=== PATIENT | male | born 1965 | race Caucasian/White ===

== ENCOUNTER 2017-02-21 18:16 | Inpatient (IN) | payer MEDICAID ==
[~2017-02-21] VITALS: Ht 172.7 cm; Wt 101.0 kg
[~2017-02-21 18:16] MED LIST: NO MEDS
[2017-02-21] MEDS ORDERED: morphine 4 MG/ML VIAL IV STA (19:17)
[2017-02-21] MEDS ORDERED: ONDANSETRON 4 MG INJ IV STA (19:17)
--- NOTE | 2017-02-21 19:26 | ERD ---
ER Documentation Chief Complaint Date/Time DATE: 02/21/17 TIME: 19:23 Chief Complaint Mid Ap x5 days (WILMER MICHAEL) HPI This is a 51-year-old male presents to the ER with abdominal pain for the last 4 days. Patient states that abdominal pain is located in the middle of his abdomen and he describes it as a" scratching sensation.' Patient has not tried anything for the pain. Pain does not radiate anywhere patient denies any nausea vomiting or diarrhea. He denies any fevers or chills. Patient denies any urinary frequency or dysuria. Patient denies any chest pain or shortness of breath. (WILMER MICHAEL) ROS All systems reviewed and are negative except as per history of present illness. (WILMER MICHAEL) Medications Home Meds Reported Medications [No Meds] No Conflict Check 01/17/13 Allergies Allergies: Coded Allergies: No Known Drug Allergy (Verified Allergy, Unknown, 01/17/13) PMhx/Soc History of Surgery: Yes (REMOVED R. KIDNEY) Anesthesia Reaction: No Hx Neurological Disorder: No Hx Respiratory Disorders: No Hx Cardiac Disorders: No Hx Psychiatric Problems: No Hx Miscellaneous Medical Probl: No Hx Alcohol Use: No Hx Substance Use: No Hx Tobacco Use: No Smoking Status: Never smoker (WILMER MICHAEL) Physical Exam Vitals Vital Signs Date Time Temp Pulse Resp B/P Pulse Ox O2 Delivery O2 Flow Rate FiO2 02/21/17 18:47 97.5 72 20 123/77 98 (EKMEKJIANXAVIER MD) Physical Exam GENERAL: The patient is well developed and appropriate for usual state of health , in no apparent distress. CHEST: Clear to auscultation bilaterally. There are no rales, wheezes or rhonchi. HEART: Regular rate and rhythm. No murmurs, clicks, rubs or gallops. ABDOMEN: Soft, nontender and nondistended. Good bowel sounds. No rebound or guarding. No gross peritonitis. No gross organomegaly or masses. No Alcala sign or McBurney point tenderness. No pulsatile abdominal mass. BACK: No midline or flank tenderness. . NEURO: Alert and oriented. SKIN: The skin is warm and dry. (WILMER MICHAEL) Result Diagram: 02/21/17194702/21/171947 Results 24 hrs Laboratory Tests Test 02/21/17 19:26 02/21/17 19:48 02/21/17 20:55 Urine Color LT. YELLOW Urine Clarity CLEAR Urine pH 6.0 Urine Specific [place] 1.025 Urine Ketones TRACE Urine Nitrite NEGATIVE Urine Bilirubin NEGATIVE Urine Urobilinogen 1.0 E.U./dL Urine Leukocyte Esterase NEGATIVE Urine Microscopic RBC 5-10/HPF Urine Microscopic WBC 0-2/HPF Urine Squamous Epithelial Cells RARE Urine Bacteria RARE Urine Hemoglobin 1+ Urine Glucose NEGATIVE% Urine Total Protein NEGATIVE White Blood Count 8.810^3/ul Red Blood Count 5.0710^6/ul Hemoglobin 15.6g/dl Hematocrit 44.9% Mean Corpuscular Volume 88.6fl Mean Corpuscular Hemoglobin 30.8pg Mean Corpuscular Hemoglobin Concent 34.7g/dl Red Cell Distribution Width 13.4% Platelet Count 88507^3/UL Mean Platelet Volume 12.6fl Neutrophils % 61.7% Lymphocytes % 25.8% Monocytes % 8.8% Eosinophils % 3.1% Basophils % 0.3% Nucleated Red Blood Cells % 0.0/100WBC Neutrophils # 5.410^3/ul Lymphocytes # 2.310^3/ul Monocytes # 0.810^3/ul Eosinophils # 0.310^3/ul Basophils # 0.010^3/ul Nucleated Red Blood Cells # 0.010^3/ul Sodium Level 144mmol/L Potassium Level 3.9mmol/L Chloride Level 107mmol/L Carbon Dioxide Level 29mmol/L Anion Gap 12 Blood Urea Nitrogen 19mg/dl Creatinine 1.23mg/dl Glucose Level 93mg/dl Calcium Level 8.8mg/dl Total Bilirubin 0.1mg/dl Direct Bilirubin 0.00mg/dl Indirect Bilirubin 0.1mg/dl Aspartate Amino Transf (AST/SGOT) 32IU/L Alanine Aminotransferase (ALT/SGPT) 59IU/L Alkaline Phosphatase 93IU/L Total Protein 7.9g/dl Albumin 4.2g/dl Globulin 3.70g/dl Albumin/Globulin Ratio 1.13 Lipase 72U/L Prothrombin Time 13.7Sec Prothrombin Time Ratio 1.1 INR International Normalized Ratio 1.05 Activated Partial Thromboplast Time 31.5Sec Current Medications Medications (Trade) Dose Ordered Sig/Aidan Route PRN Reason Start Time Stop Time Status Last Admin Dose Admin Morphine Sulfate (morphine) 4 mg ONCE STAT IV 02/21/17 19:17 02/21/17 19:18 DC 02/21/17 19:53 Ondansetron HCl (Zofran Inj) 4 mg ONCE STAT IV 02/21/17 19:17 02/21/17 19:18 DC 02/21/17 19:53 Famotidine 20 mg 20 mg ONCE ONCE IV 02/21/17 19:30 02/21/17 19:31 DC 02/21/17 19:53 Sodium Chloride 1,000 ml @ 1,000 mls/hr Q1H ONCE IV 02/21/17 20:00 02/21/17 20:59 DC 02/21/17 19:54 Piperacillin Sod/ Tazobactam Sod (Zosyn 3.375gm/ 100 ml (Pmx)) 100 ml @ 200 mls/hr ONCE ONCE IVPB 02/21/17 20:00 02/21/17 20:29 DC 02/21/17 20:03 Bupivacaine HCl/ Epinephrine Bitart (Marcaine 0.25%/ Epi (Sdv) 30 ml) 30 ml STK-MED ONCE .ROUTE 02/21/17 20:53 02/21/17 20:54 DC Citric Acid/ Sodium Citrate (Bicitra) 30 ml ONCE PO 02/21/17 22:00 02/21/17 23:00 02/21/17 21:50 Metoclopramide HCl (Reglan) 10 mg STK-MED ONCE .ROUTE 02/21/17 21:37 02/21/17 21:38 DC (XAVIER TRAN MD) Procedures/MDM This is a 51-year-old male presents to the ER with midabdominal pain for the last 4 days. Patient does have acute appendicitis of the transfer to ER 1 for further management and care. (WILMER MICHAEL) Patient is presenting with right lower quadrant pain for 3 days. His vitals are stable and he is afebrile. He has no leukocytosis or signs of peritonitis on exam. His CT abdomen and pelvis is consistent with acute appendicitis without evidence of perforation. Patient was given IV fluids, pain medications , Zosyn IV. I spoke with Dr. Rivera, the surgeon on-call, who will take the patient to the OR tonight. Patient was updated on the plan and he is agreeable. (XAVIER TRAN MD) Departure Diagnosis: Primary Impression: Acute appendicitis Acute appendicitis type: unspecified acute appendicitis type Qualified Code: K35.80 - Acute appendicitis, unspecified acute appendicitis type WILMER MICHAEL Feb 21, 2017 19:26 XAVIER TRAN MD Feb 21, 2017 21:59
[2017-02-21] MEDS ORDERED: FAMOTIDINE 20 MG INJ IV ONE (19:30)
[2017-02-21 19:38] LABS: ADD UMIC YES; URINE BILIRUBIN (Dip) NEGATIVE (NEGATIVE); URINE BLOOD (Dip) 1+ (NEGATIVE); URINE COLOR LT. YELLOW (YELLOW); URINE GLUCOSE (Dip) NEGATIVE (NEGATIVE); URINE KETONES (Dip) TRACE (NEGATIVE); URINE LEUKOCYTE ESTERASE (Dip) NEGATIVE (NEGATIVE); URINE NITRITE (Dip) NEGATIVE (NEGATIVE); URINE TOTAL PROTEIN (Dip) NEGATIVE (NEGATIVE); URINE UROBILINOGEN (Dip) 1.0 E.U./dL (0.1-1.0)
--- NOTE | 2017-02-21 19:49 | RADRPT ---
PROCEDURE: CT abdomen and pelvis without contrast. CLINICAL INDICATION: Abdominal pain TECHNIQUE: CT scan of the abdomen and pelvis without contrast was performed. Sagittal and coronal reformatted images were obtained from the axial source images. CTDI = 19.72 mGy; DLP = 1340.79 mGy- cm COMPARISON: None. FINDINGS: Visualized lower thorax: Abnormal varicose cystic bronchiectasis type changes of the right lower lo be are present. There is no evidence of pulmonary infiltrate or nodule There is no evidence for pleu ral effusion. Liver, gallbladder, pancreas and spleen: Mild hepatomegaly, the maximum dimension 20 cm with diffus e low attenuation of the liver consistent with hepatic steatosis, the liver contour is preserved. T here is no evidence for a liver mass or ductal dilatation. The gallbladder is unremarkable. No com mon bile duct abnormality is demonstrated. The pancreas is unremarkable. The spleen is normal in s ize. Adrenal glands and genitourinary system: The adrenal glands are normal bilaterally. The right kidne y is severely atrophic and barely visible, surgical resection is possible but no clips are seen in t he retroperitoneum. The left kidney shows mild compensatory hypertrophy of the cranial caudal estim ation and slightly over 12 cm. In the interpolar region and there are abutting calculi each measuri ng approximately 2 mm (series 3 image 79) an additional 3 mm calculus in the lower interpolar region (series 3 image 86). There is no evidence of hydronephrosis. The ureters are unremarkable. The ur inary bladder is contracted and difficult to evaluate. The prostate gland is normal in size with in cidental calcifications. The scrotum shows no abnormality. Gastrointestinal system: The stomach is normal in caliber with no abnormality of significance. The small bowel is normal in caliber with no ileus, obstruction or wall thickening. The appendix is abn ormally dilated measuring approximately 16 mm in diameter and with adjacent fat stranding, findings consistent with acute appendicitis (series 3 and is series 108 - 116). There is no extraluminal gas or evidence of abscess. The colon shows no evidence for wall thickening or acute abnormality. The re is no evidence for colitis or diverticulitis. Peritoneum, retroperitoneum, lymph nodes and vessels: The abdominal aorta is normal in caliber. The re is no evidence for atherosclerotic calcification. The inferior vena cava is unremarkable. There is no evidence for adenopathy or mass. There is no ascites. No pneumoperitoneum is present Osseous structures and musculoskeletal findings: There is no fracture, lytic or blastic lesion. No muscular abnormality or soft tissue pathology is present. RPTAT:HJJR IMPRESSION: 1. Acute appendicitis, the appendix posterior location projecting at the level of the iliac crest a nd without evidence of extraluminal gas or abscess. 2. Small nonobstructing left intrarenal calculi with a severely atrophic presumably nonfunctioning right kidney versus prior nephrectomy but no postoperative clips are visible. 3. Mild hepatomegaly and hepatic steatosis. 4. Cystic bronchiectasis of the right lung base. 5. Results are telephoned to the patient's emergency room Health Care provider, Echo Haque, at 1 9:48 Physician Santos Date Time Electronically viewed and signed by Physician Santos on 02/21/2017 19:49 JR/
[2017-02-21 19:53] LABS: BACTERIA,URINE RARE; SQUAMOUS EPITHELIAL CELL,UR RARE
[2017-02-21] MEDS ORDERED: SOD CHLORIDE 0.9% 1,000 ML IV ONE (20:00)
[2017-02-21] MEDS ORDERED: PIPER-TAZO 3.375 GM IV (PMX) 100 ML IVPB ONE (20:00)
[2017-02-21 20:02] LABS: ADD SCAN DIFF NO
[2017-02-21 20:03] LABS: BASOPHILS % 0.3 % (0.0-2.0); EOSINOPHILS # 0.3 10^3/ul (0.0-0.5); EOSINOPHILS % 3.1 % (0.0-7.0); HEMATOCRIT 44.9 % (42.0-52.0); HEMOGLOBIN 15.6 g/dl (14.0-18.0); LYMPHOCYTES # 2.3 10^3/ul (0.8-2.9); LYMPHOCYTES % 25.8 % (15.0-51.0); MEAN CORPUSCULAR HEMOGLOBIN 30.8 pg (29.0-33.0); MEAN CORPUSCULAR HGB CONC 34.7 g/dl (32.0-37.0); MEAN CORPUSCULAR VOLUME 88.6 fl (82.0-101.0); MEAN PLATELET VOLUME 12.6 fl (7.4-10.4); MONOCYTE # 0.8 10^3/ul (0.3-0.9); MONOCYTES % 8.8 % (0.0-11.0); NEUTROPHIL # 5.4 10^3/ul (1.6-7.5); NEUTROPHILS % 61.7 % (39.0-77.0); PLATELET COUNT 177 10^3/UL (140-415); RED BLOOD COUNT 5.07 10^6/ul (4.70-6.10); RED CELL DISTRIBUTION WIDTH 13.4 % (11.5-14.5); WHITE BLOOD COUNT 8.8 10^3/ul (4.8-10.8)
--- NOTE | 2017-02-21 20:10 | RADRPT ---
PROCEDURE: Chest x-ray CLINICAL INDICATION: Abdominal pain TECHNIQUE: Chest single view COMPARISON: None FINDINGS: The heart is normal in size. The pulmonary vessels are normal in caliber. There is mild reticular scarring in the left upper lung. Lungs otherwise clear. The costophrenic angles are sharp. The vi sualized bony thorax is unremarkable. IMPRESSION: No acute cardiopulmonary disease. RPTAT: HH .Sid Cook MD, MD Date Time Electronically viewed and signed by .Sid Cook MD, on 02/21/2017 20:10 .W/
[2017-02-21 20:15] LABS: ALBUMIN 4.2 g/dl (3.3-4.9); POTASSIUM 3.9 mmol/L (3.5-5.1)
[2017-02-21 20:18] LABS: ALBUMIN/GLOBULIN RATIO 1.13; BILIRUBIN,INDIRECT 0.1 mg/dl (0-1.1); BILIRUBIN,TOTAL 0.1 mg/dl (0.2-1.3); CALCIUM 8.8 mg/dl (8.4-10.2); CREATININE 1.23 mg/dl (0.61-1.24); TOTAL PROTEIN 7.9 g/dl (6.1-8.1)
[2017-02-21] MEDS ORDERED: BUPIVACAINE 0.25%/EPI (SDV) 30 ML INJ ONE (20:53)
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
[2017-02-21] MEDS ORDERED: ACETAMINOPHEN 325 MG TAB PO PRN (21:00)
[2017-02-21] MEDS ORDERED: HYDROCODONE/APAP (5/325) TAB PO PRN (21:00)
[2017-02-21] MEDS ORDERED: HYDROCODONE/APAP (10/325) TAB PO PRN (21:00)
[2017-02-21] MEDS ORDERED: HYDROmorphONE 1 MG/ML SYG IV PRN (21:00)
[2017-02-21] MEDS ORDERED: ONDANSETRON 4 MG INJ IV PRN ×2 (21:00→23:00)
[2017-02-21 21:17] LABS: INR 1.05; PROTIME 13.7 Sec (12.2-14.2); PT RATIO 1.1
[2017-02-21 21:18] LABS: PARTIAL THROMBOPLASTIN TIME 31.5 Sec (25.0-35.0)
[2017-02-21] MEDS ORDERED: METOCLOPRAMIDE 10 MG INJ ONE ×2 (21:37→23:16)
[2017-02-21] MEDS ORDERED: CITRIC ACID/NA CITRATE 30 ML CUP PO SCH (22:00)
[2017-02-21] MEDS ORDERED: MIDAZOLAM 1 MG/ML 2 ML INJ ONE (22:13)
[2017-02-21] MEDS ORDERED: FENTAnyl 50 MCG/ML VIAL IV PRN (23:00)
[2017-02-21] MEDS ORDERED: MEPERIDINE 25 MG INJ IV PRN (23:00)
[2017-02-21] MEDS ORDERED: DIPHENHYDRAMINE 50 MG INJ IV PRN (23:00)
[2017-02-21] MEDS ORDERED: HYDROmorphONE (0.2 MG/ML) 10ML SYG IV PRN ×2 (23:00)
[2017-02-21] MEDS ORDERED: METOCLOPRAMIDE 10 MG INJ IV PRN (23:00)
[2017-02-21] MEDS ORDERED: ONDANSETRON 4 MG INJ ONE (23:16)
[2017-02-21] MEDS ORDERED: PROPOFOL 20 ML ONE (23:18)
[2017-02-21] MEDS ORDERED: GLYCOPYRROLATE 0.4 MG INJ ONE (23:18)
[2017-02-21] MEDS ORDERED: ETOMIDATE 20 MG INJ ONE (23:18)
[2017-02-21] MEDS ORDERED: NEOSTIGMINE 3 MG/3 ML SYRINGE ONE (23:18)
[2017-02-21] MEDS ORDERED: LIDOCAINE 2% (SDV) 5 ML INJ ONE (23:18)
[2017-02-21] MEDS ORDERED: ROCURONIUM 50 MG INJ ONE (23:18)
[2017-02-21 23:25] VITALS: BP 156/81; PULSE 57; RESP 18
--- NOTE | 2017-02-21 23:26 | OPR ---
Date/Time of Note Date/Time of Note DATE: 02/21/17 TIME: 23:23 Operative Report Procedure Date: Feb 21, 2017 Preoperative Diagnosis Acute appendicitis with localized peritonitis Postoperative Diagnosis Acute appendicitis with localized peritonitis Operation Performed Lap appendectomy Surgeon: LEONID MENDEZ MD Anesthesia: general Anesthesiologist: RON BRAVO MD Estimated Blood Loss: minimal Specimens Appendix Complications: None Pt Condition Post Procedure: stable Disposition: PACU Indications Patient is a 51-year-old male who presented to the emergency room complaining of a 4 day history of right lower quadrant abdominal pain. The patient had clinical signs and symptoms of acute appendicitis which was confirmed via CT scan. He was therefore admitted, kept nothing by mouth, started on broad-spectrum intravenous antibiotics and scheduled for laparoscopic appendectomy; possible open as definitive treatment. All risks and benefits of the procedure including but not limited to: Wound infection, excessive bleeding, injury to intra-abdominal organs, conversion to open procedure etc. were explained to the patient in full detail. The patient fully understood and wished to proceed with the procedure. Informed consent was therefore obtained. Operative\Procedure Findings Nonperforated appendicitis Procedure Description The patient was brought to the operating room and placed supine on the operating table. Bilateral sequential compression devices were placed on both lower extremities. The patient had been given a dose of broad-spectrum perioperative intravenous antibiotics while in the emergency room. After the induction of smooth general endotracheal anesthesia the patient's abdomen was prepped and draped in the standard surgical fashion. A 5 mm incision was made in the superior umbilicus and a Veress needle was used to access the intra- abdominal cavity atraumatically. Pneumoperitoneum was then obtained and the Veress needle was exchanged for a 5 mm trocar through which a 5 mm laparoscope was placed. Two further working ports were then placed, a 12 mm port in the midline suprapubic area and another 5 mm port midway between the suprapubic and umbilical port sites. All port sites were anesthetized with 0.25% Marcaine with epinephrine prior to incision. Attention was then turned towards the right lower quadrant. The appendix was identified posterior to the cecum. Using atraumatic graspers, the appendix was grasped and retracted superiorly and medially exposing the mesoappendix. The appendix appeared erythematous and inflamed consistent with acute appendicitis, but not perforated. Using the harmonic scalpel the mesoappendix was taken down to the level of the appendiceal base. The appendix was then transected at its base using a firing of the laparoscopic HAIM stapler. Once completely free the appendix was placed in an Endo Catch bag and withdrawn through the suprapubic port site and passed off the field as specimen. Hemostasis was then inspected for and noted to be total. The abdomen was then irrigated with copious amounts of warm normal saline and the irrigant returned crystal clear. The fascia of the suprapubic port site was then reapproximated using an Endo Close device and 0 Vicryl suture. Pneumoperitoneum was then released and all remaining trochars were withdrawn under direct vision. The subcutaneous tissues were irrigated with more warm normal saline and further local anesthesia was applied around the skin of the incision sites. The skin was then reapproximated using 4-0 Monocryl sutures in subcuticular fashion. The incisions were cleaned and Dermabond was applied and the patient was awoken from anesthesia and transported to the recovery room in stable condition. All counts were correct at the end of the case 2. LEONID MENDEZ MD Feb 21, 2017 23:26
[2017-02-21 23:30] VITALS: BP 107/63; PULSE 64; RESP 17
[2017-02-21 23:35] VITALS: BP 106/60; PULSE 56; RESP 17
[2017-02-21 23:40] VITALS: BP 114/61; PULSE 68; RESP 17
[2017-02-21 23:45] VITALS: BP 111/66; PULSE 57; RESP 17
[2017-02-21 23:50] VITALS: BP 115/75; PULSE 58; RESP 17
[2017-02-22] VITALS (12 sets, daily range): BP systolic 108–159; BP diastolic 56–85; PULSE 58–96; RESP 16–20; Ht 172.7 cm; Wt 101.0 kg
[2017-02-22] MEDS: DEXTROSE 5%-0.45% NACL 1,000 ML IV SCH ×3 (01:19→12:38)
[2017-02-22] MEDS ORDERED: morphine 10 MG INJ IM PRN (01:30)
[2017-02-22] MEDS: DOCUSATE SODIUM 100 MG CAP PO SCH ×2 (01:30→07:53)
[2017-02-22] MEDS: FAMOTIDINE 20 MG TAB PO SCH ×2 (01:57→07:53)
[2017-02-22 05:44] LABS: ADD SCAN DIFF NO
[2017-02-22 06:02] LABS: BASOPHILS % 0.2 % (0.0-2.0); EOSINOPHILS # 0.1 10^3/ul (0.0-0.5); EOSINOPHILS % 0.5 % (0.0-7.0); HEMATOCRIT 38.7 % (42.0-52.0); HEMOGLOBIN 13.1 g/dl (14.0-18.0); LYMPHOCYTES # 1.8 10^3/ul (0.8-2.9); LYMPHOCYTES % 17.9 % (15.0-51.0); MEAN CORPUSCULAR HEMOGLOBIN 30.3 pg (29.0-33.0); MEAN CORPUSCULAR HGB CONC 33.9 g/dl (32.0-37.0); MEAN CORPUSCULAR VOLUME 89.6 fl (82.0-101.0); MEAN PLATELET VOLUME 13.2 fl (7.4-10.4); MONOCYTE # 0.8 10^3/ul (0.3-0.9); MONOCYTES % 7.4 % (0.0-11.0); NEUTROPHIL # 7.6 10^3/ul (1.6-7.5); NEUTROPHILS % 73.7 % (39.0-77.0); PLATELET COUNT 133 10^3/UL (140-415); RED BLOOD COUNT 4.32 10^6/ul (4.70-6.10); RED CELL DISTRIBUTION WIDTH 13.6 % (11.5-14.5); WHITE BLOOD COUNT 10.3 10^3/ul (4.8-10.8)
[2017-02-22 07:19] LABS: CREATININE 0.99 mg/dl (0.61-1.24)
--- NOTE | 2017-02-22 07:19 | HP ---
DATE OF ADMISSION: 02/22/2017 HISTORY OF PRESENT ILLNESS: The patient is a 51-year-old male with a history of right nephrectomy 2 0 years ago secondary to nephrolithiasis who presented to the emergency department with abdominal pa in. CT abdomen and pelvis shows acute appendicitis. He was taken directly from the ER to the opera ting room, and now he is status post laparoscopic appendectomy. Currently, except minimal pain, he does not have any complaints. REVIEW OF SYSTEMS: A 12-point review of systems was performed and negative except as in the HPI. PAST MEDICAL HISTORY: As per HPI. PAST SURGICAL HISTORY: As per HPI. SOCIAL HISTORY: Denies history of tobacco, alcohol, or illicit drug use. ALLERGIES: NO KNOWN DRUG ALLERGIES. HOME MEDICATIONS: None. PHYSICAL EXAMINATION: VITAL SIGNS: Stable. GENERAL: Overweight male lying in bed in no acute distress, answering questions appropriately. HEENT: No obvious head deformity. Pupils reactive to light. Extraocular muscles intact. CARDIOVASCULAR: Regular rate and rhythm. No extra sounds. LUNGS: Clear. ABDOMEN: Soft. There is pain around the surgical site. No rigidity. There are positive bowel js nds. EXTREMITIES: No edema. LABORATORY: CBC and CMP are unremarkable. IMAGING: CT abdomen and pelvis shows acute appendicitis. IMPRESSION: 1. Acute appendicitis status post laparoscopic appendectomy. 2. Abdominal pain, secondary to above. 3. Obesity with a BMI of 34. 4. History of right nephrectomy secondary to nephrolithiasis. PLAN: Continue pain management. Advance diet as tolerated. Encourage early ambulation. Once the patient tolerates oral intake and when his pain is acceptably controlled, then he will be discharged home once cleared by Dr. Rivera. Further workup and management per clinical course. Dictated By: DARA DUVAL/KRYSTLE Conf#: [id number] DID#: [id number]
[2017-02-22 07:20] LABS: CALCIUM 7.9 mg/dl (8.4-10.2)
--- NOTE | 2017-02-22 19:30 | PDOCDIS ---
Discharge Instructions CONDITION Patient Condition: Stable HOME CARE INSTRUCTIONS: Diet Instructions: Regular ACTIVITY: Activity Restrictions: Slowly Increase Activity FOLLOW UP/APPOINTMENTS Appointments Take your medications, see your doctor in 1 week. MONALISA DOUGLASS Feb 22, 2017 19:30
[2017-02-22] MEDS ORDERED: ACET1TAB40 PO (19:32)
--- NOTE | 2017-02-22 19:33 | PN ---
Date/Time of Note Date/Time of Note DATE: 02/22/17 TIME: 19:30 Assessment/Plan Lines/Catheters IV Catheter Type (from Nrs): Peripheral IV Benz in Place (from Nrs): No Assessment/Plan Assessment/Plan 51-year-old male s/p laparoscopic appendectomy POD#1 * Surgically stable for discharge home when medically cleared * Follow up in office in 2 weeks Subjective 24 Hr Interval Summary Doing well. Denies abdominal pain. Tolerating diet. Ambulating. Afebrile. Exam/Review of Systems Vital Signs Vitals Vital Signs Date Time Temp Pulse Resp B/P Pulse Ox O2 Delivery O2 Flow Rate FiO2 02/22/17 08:26 99.0 77 16 108/56 95 02/22/17 01:47 Nasal Cannula 2.0 Intake and Output 02/21/17 02/21/17 02/22/17 15:00 23:00 07:00 Intake Total 1200 ml Output Total 610 ml Balance 590 ml Exam Free Text/Dictation GENERAL: Awake, alert, oriented 3. No acute distress. CARDIOVASCULAR: S1S2, regular rate and rhythm. No murmurs appreciated. RESPIRATORY: Clear to auscultation bilaterally. ABDOMEN: Obese, Soft, bowel sounds present. Non-tender to palpation. INCISIONS: clean, dry, intact EXTREMITIES: Free range of motion 4. No cyanosis, edema, or clubbing. Results Result Diagram: 02/22/17 0510 02/22/17 0510 LEONID MENDEZ MD Feb 22, 2017 19:33
--- NOTE | 2017-02-22 20:34 | DS ---
DATE OF ADMISSION: 02/22/2017 DATE OF DISCHARGE: 02/22/2017 HOSPITAL COURSE: This is a 51-year-old male originally admitted on 02/22/2017, after being discharg ed home also on 02/22/2017. The patient came in with a history of right nephrectomy 20 years ago. He came in with abdominal pain. He had imaging studies performed that showed acute appendicitis. Shahid campbell was admitted to med/surg floor and seen by surgery team. He underwent an operation. Specifically , he was found with acute appendicitis with localized peritonitis, and he underwent a laparoscopic a ppendectomy, after which the patient tolerated the procedure well. He was eventually able to ambula te and tolerate a p.o. diet. His vital signs were stable. His labs as well, and after [facility] clearance from the surgery team, he will be discharged home today in improved condition. He will be sent with the following medications: Tylenol #3 one tab p.o. q.6h. p.r.n. He will need to follow up with primary care doctor's team and general surgery team in the clinic in the next 1-2 weeks. FINAL DIAGNOSES: 1. Abdominal pain secondary to acute appendicitis, status post laparoscopic appendectomy. 2. History of right nephrectomy 20 years ago secondary to kidney stones. 3. Obesity with a body mass index of 34. Time spent discharging patient: 35 minutes. Dictated By: MONALISA BRAVO/KRYSTLE Conf#: [id number] DID#: [id number]
== END 2017-02-22 20:40 | disposition home or self-care (01) | DRG 340 ==
LOC: FTE 18:16 → SDS 20:59 → MS2 02-22 01:35
PROVIDERS: ADMIT Internal Medicine; ATTEND Surgery
PROC: 0DTJ0ZZ Resection of Appendix, Open Approach (ICD-10-PCS; principal; 2017-02-21 21:30)
DX: K35.3 Acute appendicitis with localized peritonitis (principal); E66.01 Morbid (severe) obesity due to excess calories; Z68.33 Body mass index [BMI] 33.0-33.9, adult
CPT/HCPCS: 71010; 74176; 80048; 80053; 81001; 81003; 83690; 85025; 85610; 85730; 88304; 93005; 96374; 96375; J2250; J2270; J2405; J2543; J2710; J2765; J3010; J7030; J7042

== ENCOUNTER 2017-05-06 16:31 | Inpatient (IN) | payer MEDICAID ==
[~2017-05-06] VITALS: Ht 152.4 cm; Wt 95.1 kg
[~2017-05-06 16:31] MED LIST changes: +ACET1TAB40 PO; -NO MEDS
[2017-05-06 18:43] LABS: ADD SCAN DIFF NO
[2017-05-06 18:46] LABS: BASOPHILS % 0.2 % (0.0-2.0); EOSINOPHILS # 0.1 10^3/ul (0.0-0.5); EOSINOPHILS % 0.9 % (0.0-7.0); HEMATOCRIT 46.2 % (42.0-52.0); HEMOGLOBIN 15.8 g/dl (14.0-18.0); LYMPHOCYTES # 1.1 10^3/ul (0.8-2.9); MEAN CORPUSCULAR HGB CONC 34.2 g/dl (32.0-37.0); MEAN CORPUSCULAR VOLUME 87.8 fl (82.0-101.0); MEAN PLATELET VOLUME 12.3 fl (7.4-10.4); MONOCYTE # 0.9 10^3/ul (0.3-0.9); MONOCYTES % 9.1 % (0.0-11.0); NEUTROPHILS % 78.5 % (39.0-77.0); PLATELET COUNT 170 10^3/UL (140-415); RED BLOOD COUNT 5.26 10^6/ul (4.70-6.10); RED CELL DISTRIBUTION WIDTH 13.4 % (11.5-14.5); WHITE BLOOD COUNT 10.2 10^3/ul (4.8-10.8)
[2017-05-06 19:03] LABS: ALBUMIN 4.8 g/dl (3.3-4.9); ALBUMIN/GLOBULIN RATIO 1.37; BILIRUBIN,INDIRECT 0.4 mg/dl (0-1.1); BILIRUBIN,TOTAL 0.4 mg/dl (0.2-1.3); CALCIUM 9.7 mg/dl (8.4-10.2); CREATININE 2.26 mg/dl (0.61-1.24); POTASSIUM 4.4 mmol/L (3.5-5.1); TOTAL PROTEIN 8.3 g/dl (6.1-8.1)
--- NOTE | 2017-05-06 19:13 | ERD ---
ER Documentation Chief Complaint Date/Time DATE: 05/06/17 TIME: 19:11 Chief Complaint LEFT FLANK PAIN TODAY, IN NO DISTRESS HPI This is a 51-year-old male presents to the ER with left-sided abdominal pain that started this morning. Patient states that abdominal pain is located in the left upper quadrant and radiates down to the left lower quadrant. Pain is throbbing in quality and patient is worried about kidney dysfunction as he has had a similar pain before and patient states that he lost his right kidney because of this. Patient admits to nausea he denies any vomiting or diarrhea. He denies any fevers or chills. He denies any hematuria or dysuria. Past medical history includes kidney problems of unknown etiology and unknown diagnosis. Patient denies any chest pain, shortness of breath, extremity swelling. ROS 12 point review of systems was done, all negative except per HPI. Medications Home Meds Active Scripts Acetaminophen with Codeine (Acetaminophen-Cod #3 Tablet) 1 Each Tablet, 1 TAB PO Q6H Y for PAIN LEVEL 8-10, #10 TAB Prov:MONALISA DOUGLASS 02/22/17 Allergies Allergies: Coded Allergies: No Known Drug Allergy (Verified Allergy, Unknown, 01/17/13) PMhx/Soc History of Surgery: Yes (RT NEPHRECTOMY) Anesthesia Reaction: No Hx Neurological Disorder: No Hx Respiratory Disorders: No Hx Cardiac Disorders: No Hx Psychiatric Problems: No Hx Miscellaneous Medical Probl: Yes (OBESITY, BLD TRANSFUSION) Hx Alcohol Use: No Hx Substance Use: No Hx Tobacco Use: No Smoking Status: Never smoker Physical Exam Vitals Vital Signs Date Time Temp Pulse Resp B/P Pulse Ox O2 Delivery O2 Flow Rate FiO2 05/06/17 16:36 98.3 67 18 138/83 99 Physical Exam GENERAL: The patient is well developed and appropriate for usual state of health , in no apparent distress. HEENT: Atraumatic. CHEST: Clear to auscultation bilaterally. There are no rales, wheezes or rhonchi. HEART: Regular rate and rhythm. No murmurs, clicks, rubs or gallops. ABDOMEN: Soft, nontender and nondistended. Good bowel sounds. No rebound or guarding. No gross peritonitis. No gross organomegaly or masses. No Alcala sign or McBurney point tenderness. BACK: No midline or flank tenderness. EXTREMITIES: No lower extremity swelling, no pitting edema. NEURO: Alert and oriented. Cranial nerves II through XII are intact. SKIN: There is no apparent rash or petechia. The skin is warm and dry. Result Diagram: 05/06/17182405/06/171824 Results 24 hrs Laboratory Tests Test 05/06/17 18:25 05/06/17 19:22 White Blood Count 10.210^3/ul Red Blood Count 5.2610^6/ul Hemoglobin 15.8g/dl Hematocrit 46.2% Mean Corpuscular Volume 87.8fl Mean Corpuscular Hemoglobin 30.0pg Mean Corpuscular Hemoglobin Concent 34.2g/dl Red Cell Distribution Width 13.4% Platelet Count 32732^3/UL Mean Platelet Volume 12.3fl Neutrophils % 78.5% Lymphocytes % 11.0% Monocytes % 9.1% Eosinophils % 0.9% Basophils % 0.2% Nucleated Red Blood Cells % 0.0/100WBC Neutrophils # 8.010^3/ul Lymphocytes # 1.110^3/ul Monocytes # 0.910^3/ul Eosinophils # 0.110^3/ul Basophils # 0.010^3/ul Nucleated Red Blood Cells # 0.010^3/ul Sodium Level 145mmol/L Potassium Level 4.4mmol/L Chloride Level 108mmol/L Carbon Dioxide Level 24mmol/L Anion Gap 17 Blood Urea Nitrogen 27mg/dl Creatinine 2.26mg/dl Glucose Level 95mg/dl Calcium Level 9.7mg/dl Total Bilirubin 0.4mg/dl Direct Bilirubin 0.00mg/dl Indirect Bilirubin 0.4mg/dl Aspartate Amino Transf (AST/SGOT) 33IU/L Alanine Aminotransferase (ALT/SGPT) 37IU/L Alkaline Phosphatase 81IU/L Total Protein 8.3g/dl Albumin 4.8g/dl Globulin 3.50g/dl Albumin/Globulin Ratio 1.37 Lipase 55U/L Urine Color LT. YELLOW Urine Clarity CLEAR Urine pH 6.0 Urine Specific [place] <=1.005 Urine Ketones NEGATIVE Urine Nitrite NEGATIVE Urine Bilirubin NEGATIVE Urine Urobilinogen 0.2 E.U./dL Urine Leukocyte Esterase NEGATIVE Urine Microscopic RBC 25-50/HPF Urine Microscopic WBC 5-10/HPF Urine Hemoglobin 3+ Urine Glucose NEGATIVE% Urine Total Protein 1+ Procedures/MDM This is a 51-year-old male presents to the ER with left-sided flank pain started today. Patient does have a significant increase in his creatinine, likely acute kidney injury of unknown etiology. Patient may have had a stone that passed and he does have hematuria. He is afebrile and well-appearing however his creatinine is concerning and patient would benefit from admission. Departure Diagnosis: Primary Impression: Acute kidney failure Condition: WILMER Mujica May 06, 2017 19:13
--- NOTE | 2017-05-06 19:14 | RADRPT ---
PROCEDURE: CT Abdomen and Pelvis without contrast. CLINICAL INDICATION: Left abdominal pain. TECHNIQUE: A CT scan of the abdomen and pelvis was performed without intravenous contrast. Cain l and sagittal reformatted images were generated. Images were reviewed on a high-resolution PACS wor kstation. CTDIvol: 21.69 mGy. DLP: 1265.82 mGy-cm. One or more of the following dose reduction techniques were used: - Automated exposure control. - Adjustment of the mA and/or kV according to patient size. - Use of iterative reconstruction technique. COMPARISON: None. FINDINGS: The lung bases are clear. Evaluation of the abdominal and pelvic viscera is limited by the lack of oral and intravenous contra st. The liver is unremarkable. The gallbladder is normal in appearance. The common bile duct is not dila poonam. The spleen is not enlarged. No pancreatic lesion is identified and there is no pancreatic ducta l dilatation. The adrenal glands are unremarkable. The right kidney is absent. There is minimal fullness of the left renal collecting system without de finite hydronephrosis. Two nonobstructing stones in the left kidney measure up to 3 mm. There is mi ld to moderate left perinephric fat stranding, nonspecific. The small and large bowel are normal in caliber. There is no bowel wall thickening.There is minimal sigmoid colon diverticulosis. The appendix not visualized and there are apparent sutures along the cecum, suggestive of prior appendectomy. The urinary bladder is unremarkable. The pelvic organs are within normal limits. No lymphadenopathy is identified. There is no ascites. No pneumoperitoneum is seen. There are no art erial calcifications. No suspicious osseous lesion is idenitified. IMPRESSION: 1. Minimal fullness of the left renal collecting system without definite hydronephrosis, and mild t o moderate left perinephric fat stranding. No obstructing stone is identified. These findings are n onspecific but might represent the sequelae of a recently passed left ureteral stone and/or pyelonep hritis. Correlation with urinalysis and CBC is recommended. 2. Two nonobstructing left renal stones measuring up to 3 mm. 3. Absent right kidney. 4. The appendix not visualized and there are apparent sutures along the cecum, suggestive of prior appendectomy. RPTAT: HTAR .Ricardo Flor MD, MD Date Time Electronically viewed and signed by .Ricardo Flor MD, on 05/06/2017 19:13 .R/
[2017-05-06 20:10] LABS: ADD UMIC YES; UR BILIRUBIN (Dip) NEGATIVE (NEGATIVE); UR BLOOD (Dip) 3+ (NEGATIVE); UR CLARITY CLEAR (CLEAR); UR COLOR LT. YELLOW (YELLOW); UR GLUCOSE (Dip) NEGATIVE (NEGATIVE); UR KETONES (Dip) NEGATIVE (NEGATIVE); UR LEUKOCYTE ESTERASE (Dip) NEGATIVE (NEGATIVE); UR NITRITE (Dip) NEGATIVE (NEGATIVE); UR TOTAL PROTEIN (Dip) 1+ (NEGATIVE); UR UROBILINOGEN (Dip) 0.2 E.U./dL (0.1-1.0)
[2017-05-06 20:21] LABS: URINE RBCS 25-50 /HPF (0)
--- NOTE | 2017-05-06 22:19 | EN ---
Date/Time of Note Date/Time of Note DATE: 05/06/17 TIME: 22:18 ER Progress Note PA had initially seen this patient brought him to my attention in asked for advice. Patient has a creatinine of 2.2 previously 0.99 and a solitary kidney. Also has urinary tract infection is urine has just come back. Been given 1 L of fluid as well as a gram of cefepime. No signs of sepsis currently but the single kidney he warrants admission for fluid administration and monitoring to ensure that he does not develop renal failure of his only remaining kidney. I spoke with Dr. Phillips will be admitting. TED WARE DO May 06, 2017 22:19
[2017-05-06] MEDS ORDERED: SOD CHLORIDE 0.9% 1,000 ML IV ONE ×2 (22:30)
[2017-05-06] MEDS ORDERED: CEFEPIME 1GM/50 ML (PMX) 50 ML IVPB ONE (22:30)
[2017-05-06] MEDS ORDERED: ONDANSETRON 4 MG INJ IV PRN (23:00)
[2017-05-06] MEDS ORDERED: DOCUSATE SODIUM 100 MG CAP PO PRN (23:00)
[2017-05-06] MEDS ORDERED: BISACODYL (EC) 5 MG TAB PO PRN (23:00)
[2017-05-06] MEDS ORDERED: NACL 0.9% 3 ML SYG IV SCH (23:00)
[2017-05-06] MEDS ORDERED: ACETAMINOPHEN 325 MG TAB PO PRN (23:00)
[2017-05-06] MEDS: CEFTRIAXONE 1 GM/50 ML (PMX) 50 ML IVPB SCH (23:33)
[2017-05-07 01:17] VITALS: Ht 152.4 cm; Wt 95.1 kg
[2017-05-07 01:27] VITALS: BP 131/79; PULSE 96; RESP 18
[2017-05-07] MEDS: FAMOTIDINE 20 MG INJ IV SCH ×3 (01:34→21:13)
[2017-05-07] MEDS: SOD CHLORIDE 0.9% 1,000 ML IV SCH ×2 (01:34→13:29)
--- NOTE | 2017-05-07 04:28 | HP ---
Date/Time of Note Date/Time of Note DATE: 05/07/17 TIME: 04:15 Assessment/Plan VTE Prophylaxis VTE Prophylaxis Intervention: SCD's Lines/Catheters IV [facility]ter [facility]from [facility]): Peripheral IV Urinary Cath still in place: No Assessment/Plan Chief Complaint/Hosp Course This is a 51-year-old male being admitted to the [facility] floor for: #1 acute kidney injury: Patient's creatinine is 2.2 which is elevated from his previous of 0.99 from approximately 3 months ago. Patient has a history of right nephrectomy secondary to a complication from kidney stones. At the current time will provide IV fluid hydration for the patient. CAT scan did show some evidence of nephrolithiasis as well as possible ureteral stone passing /perinephric stranding. Will check a renal ultrasound in the a.m. Will also get a nephrology consult for any further recommendations. #2 possible urinary tract infection: Patient was diagnosed with a urinary tract infection in the ED however there are no nitrites or leukoesterase that were positive on the UA. However secondary to the patient's urinary frequency as well as possible perinephric stranding observed on the CT scan at the current time will put the patient on ceftriaxone IV antibiotic coverage. Will order urine culture. No signs of any fevers right now. We will continue to follow. #3 nephrolithiasis: There are approximately 2 nonobstructing renal stones 3 mm in size on the left side. There possibly could have been the passage of a 1 earlier which could have caused the pain. At the current time we will continue IV fluid hydration. Order renal ultrasound. Will also consider Flomax once patient's kidney function starts to improve. #4 DVT and GI prophylaxis: SCDs, famotidine. Further treatment strategy will be implemented as per the clinical course. Problems: HPI/ROS Admit Date/Time Admit Date/Time May 06, 2017 at 22:48 Hx of Present Illness Chief complaint: Left abdominal pain This is a 51-year-old male presents to the ER with left-sided abdominal pain that started this morning. Patient states that abdominal pain is located in the left upper quadrant and radiates down to the left lower quadrant and to the left flank. pain is throbbing in quality and patient is worried about kidney dysfunction as he has had a similar pain before and patient states that he lost his right kidney because of this. Patient admits to nausea he denies any vomiting or diarrhea. He denies any fevers or chills. He denies any hematuria or dysuria. Past medical history includes kidney problems of unknown etiology and unknown diagnosis. Patient denies any chest pain, shortness of breath, extremity swelling. Allergies: NKDA Medications: See MAR ROS Const: As per HPI Eyes : No pain discharge or redness or change in visual acuity ENT: No pain, sore throat, congestion, congestion, dysphagia or discharge Respiratory: No shortness of breath, cough, sputum, wheezing, or pleuritic pain Cardiovascular: No chest pain, palpitation, PND, or edema GI : As per HPI Genitourinary: Increased urinary frequency, but the rest as per HPI Musculoskeletal: No joint pain, back pain, neck pain, restricted range of motion in neck or joints Skin: No rash, bruising or hives Neuro: No headache, dizziness, syncope, seizure, focal weakness Endocrine: No polyuria, polydipsia, temperature intolerance Psych: No hallucination, depression, anxiety or suicidal ideation PMH/Family/Social Past Medical History Nephrolithiasis, hypertension, appendicitis Past Surgical History Right nephrectomy, appendectomy Family History Significant Family History: no pertinent family hx Social History Alcohol Use: rarely Smoking Status: Former smoker Drug Use: none Exam/Review of Systems Vital Signs Vitals Vital Signs Date Time Temp Pulse Resp B/P Pulse Ox O2 Delivery O2 Flow Rate FiO2 05/07/17 01:27 98.0 96 18 131/79 96 Room Air Intake and Output 05/06/17 05/06/17 05/07/17 15:00 23:00 07:00 Intake Total 2100 ml Balance 2100 ml Exam Exam General: Patient is well-developed well-nourished The patient is alert oriented -3 lying comfortably in bed. HEENT: Atraumatic, normocephalic. The pupils are equal, round and reactive. Extraocular motor are intact Neck: Supple with full range of motion. No rigidity or meningismus Chest: Nontender Lungs: Clear to auscultation bilaterally no crackles rales or wheezing Heart: Normal S1-S2, Regular rhythm and rate. Abdomen: Soft, nontender, no distention. Normal bowel sounds. Extremities: Normal to inspection, no edema no cyanosis Neurologic: Normal mental status, speech normal, cranial nerves II through XII are intact, motor and sensory are intact, no focal weakness Additional Comments PROCEDURE: CT Abdomen and Pelvis without contrast. CLINICAL INDICATION: Left abdominal pain. TECHNIQUE: A CT scan of the abdomen and pelvis was performed without intravenous contrast. Coronal and sagittal reformatted images were generated. Images were reviewed on a high-resolution PACS workstation. CTDIvol: 21.69 mGy. DLP: 1265.82 mGy-cm. One or more of the following dose reduction techniques were used: - Automated exposure control. - Adjustment of the mA and/or kV according to patient size. - Use of iterative reconstruction technique. COMPARISON: None. FINDINGS: The lung bases are clear. Evaluation of the abdominal and pelvic viscera is limited by the lack of oral and intravenous contrast. The liver is unremarkable. The gallbladder is normal in appearance. The common bile duct is not dilated. The spleen is not enlarged. No pancreatic lesion is identified and there is no pancreatic ductal dilatation. The adrenal glands are unremarkable. The right kidney is absent. There is minimal fullness of the left renal collecting system without definite hydronephrosis. Two nonobstructing stones in the left kidney measure up to 3 mm. There is mild to moderate left perinephric fat stranding, nonspecific. The small and large bowel are normal in caliber. There is no bowel wall thickening.There is minimal sigmoid colon diverticulosis. The appendix not visualized and there are apparent sutures along the cecum, suggestive of prior appendectomy. The urinary bladder is unremarkable. The pelvic organs are within normal limits. No lymphadenopathy is identified. There is no ascites. No pneumoperitoneum is seen. There are no arterial calcifications. No suspicious osseous lesion is idenitified. IMPRESSION: 1. Minimal fullness of the left renal collecting system without definite hydronephrosis, and mild to moderate left perinephric fat stranding. No obstructing stone is identified. These findings are nonspecific but might represent the sequelae of a recently passed left ureteral stone and/or pyelonephritis. Correlation with urinalysis and CBC is recommended. 2. Two nonobstructing left renal stones measuring up to 3 mm. 3. Absent right kidney. 4. The appendix not visualized and there are apparent sutures along the cecum, suggestive of prior appendectomy. Labs Result Diagram: 05/06/17 1825 05/06/17 1825 Medications Medications Current Medications Sodium Chloride (NS) 1,000 ml @ 70 mls/hr [id number] IV Last administered on 05/07 01:34; Admin Dose 70 MLS/HR; Start 05/06/17 at 22:45 Ondansetron HCl (Zofran Inj) 4 mg Q6H PRN IV NAUSEA AND/OR VOMITING; Start 11/10 at 23:00 Acetaminophen (Tylenol Tab) 650 mg Q6H PRN PO PAIN LEVEL 1-3 OR FEVER; Start at 23:00 Docusate Sodium (Colace) 100 mg Q12H PRN PO CONSTIPATION; Start 05/06/17 at 23: 00 Bisacodyl (Dulcolax) 5 mg DAILY PRN PO CONSTIPATION; Start 05/06/17 at 23:00 Famotidine 20 mg 20 mg Q12 IV Last administered on 05/07/17 01:34; Admin Dose 20 MG; Start 05/06/17 at 23:00 Ceftriaxone Sodium (Rocephin) 50 ml @ 100 mls/hr Q24H IVPB Last administered on 05/06/17 23:33; Admin Dose 100 MLS/HR; Start 05/06/17 at 23:00 JUAN M CHAVEZ May 07, 2017 04:25
[2017-05-07 05:19] LABS: ADD SCAN DIFF NO
[2017-05-07 05:23] LABS: BASOPHILS % 0.3 % (0.0-2.0); EOSINOPHILS # 0.2 10^3/ul (0.0-0.5); EOSINOPHILS % 2.7 % (0.0-7.0); HEMATOCRIT 41.3 % (42.0-52.0); LYMPHOCYTES % 27.9 % (15.0-51.0); MEAN CORPUSCULAR HEMOGLOBIN 29.9 pg (29.0-33.0); MEAN CORPUSCULAR HGB CONC 33.9 g/dl (32.0-37.0); MEAN CORPUSCULAR VOLUME 88.2 fl (82.0-101.0); MEAN PLATELET VOLUME 12.9 fl (7.4-10.4); MONOCYTE # 0.7 10^3/ul (0.3-0.9); MONOCYTES % 9.6 % (0.0-11.0); NEUTROPHIL # 4.2 10^3/ul (1.6-7.5); NEUTROPHILS % 59.2 % (39.0-77.0); PLATELET COUNT 156 10^3/UL (140-415); RED BLOOD COUNT 4.68 10^6/ul (4.70-6.10); RED CELL DISTRIBUTION WIDTH 13.9 % (11.5-14.5); WHITE BLOOD COUNT 7.2 10^3/ul (4.8-10.8)
[2017-05-07 05:53] LABS: ALBUMIN 4.1 g/dl (3.3-4.9); ALBUMIN/GLOBULIN RATIO 1.57; BILIRUBIN,INDIRECT 0.4 mg/dl (0-1.1); BILIRUBIN,TOTAL 0.4 mg/dl (0.2-1.3); CALCIUM 8.8 mg/dl (8.4-10.2); CREATININE 1.49 mg/dl (0.61-1.24); TOTAL PROTEIN 6.7 g/dl (6.1-8.1)
--- NOTE | 2017-05-07 07:33 | RADRPT ---
PROCEDURE: US KIDNEYS AND BLADDER CLINICAL INDICATION: Renal insufficiency, urinary tract infection TECHNIQUE: Sonographic evaluation of the kidneys and bladder was performed using a curved array tr ansducer. COMPARISON: CT scan from 05/06/2017. FINDINGS: The right kidney is absent. Left kidney measures 13.9 cm in length. Normal cortical thickness and echogenicity. There is left renal pelviectasis versus minimal hydronephrosis. The incompletely distended bladder is grossly unremarkable. IMPRESSION: Left renal pelviectasis versus minimal hydronephrosis. No renal abscess is seen. The right kidney is absent. RPTAT:PP .Humphrey Aldrich MD, MD Date Time Electronically viewed and signed by .Humphrey Aldrich MD, on 05/07/2017 07:32 .V/
[2017-05-07 08:10] VITALS: BP 111/73; RESP 16
--- NOTE | 2017-05-07 08:19 | PN ---
Date/Time of Note Date/Time of Note DATE: 05/07/17 TIME: 08:17 Assessment/Plan VTE Prophylaxis VTE Prophylaxis Intervention: ambulation, SCD's Lines/Catheters [facility] Peripheral IV Urinary Cath still in place: No Assessment/Plan Assessment/Plan This is a 51-year-old male being admitted to the [facility] floor for: #1 acute kidney injury: improving / change fluids for developing hydronephrosis #2 Nephrolithiasis: There are approximately 2 nonobstructing renal stones 3 mm in size on the left side. There possibly could have been the passage of a 1 earlier which could have caused the pain. #3 : Solitary kidney #4 DVT and GI prophylaxis: SCDs, famotidine. Exam/Review of Systems Vital Signs Vitals Vital Signs Date Time Temp Pulse Resp B/P Pulse Ox O2 Delivery O2 Flow Rate FiO2 05/07/17 08:10 98.1 76 16 111/73 97 05/07/17 01:27 Room Air Intake and Output 05/06/17 05/06/17 05/07/17 15:00 23:00 07:00 Intake Total 3015 ml Output Total 500 ml Balance 2515 ml Results Result Diagram: 05/07/17 0439 05/07/17 0439 Results 24 hrs Laboratory Tests Test 05/06/17 18:25 05/06/17 19:22 05/07/17 04:39 White Blood Count 10.2 7.2 # Red Blood Count 5.26 # 4.68 L Hemoglobin 15.8 # 14.0 Hematocrit 46.2 41.3 L Mean Corpuscular Volume 87.8 88.2 Mean Corpuscular Hemoglobin 30.0 29.9 Mean Corpuscular Hemoglobin Concent 34.2 33.9 Red Cell Distribution Width 13.4 13.9 Platelet Count 170 # 156 Mean Platelet Volume 12.3 H 12.9 H Neutrophils % 78.5 H 59.2 Lymphocytes % 11.0 L 27.9 Monocytes % 9.1 9.6 Eosinophils % 0.9 2.7 Basophils % 0.2 0.3 Nucleated Red Blood Cells % 0.0 0.0 Neutrophils # 8.0 H 4.2 Lymphocytes # 1.1 2.0 Monocytes # 0.9 0.7 Eosinophils # 0.1 0.2 Basophils # 0.0 0.0 Nucleated Red Blood Cells # 0.0 0.0 Sodium Level 145 H 145 H Potassium Level 4.4 4.0 Chloride Level 108 112 H Carbon Dioxide Level 24 27 Anion Gap 17 H 10 # Blood Urea Nitrogen 27 H 24 H Creatinine 2.26 H 1.49 H Glucose Level 95 85 Calcium Level 9.7 8.8 Total Bilirubin 0.4 0.4 Direct Bilirubin 0.00 0.00 Indirect Bilirubin 0.4 0.4 Aspartate Amino Transf (AST/SGOT) 33 23 Alanine Aminotransferase (ALT/SGPT) 37 35 Alkaline Phosphatase 81 61 Total Protein 8.3 H 6.7 # Albumin 4.8 4.1 Globulin 3.50 H 2.60 Albumin/Globulin Ratio 1.37 1.57 Lipase 55 Urine Color LT. YELLOW Urine Clarity CLEAR Urine pH 6.0 Urine Specific [place] <=1.005 L Urine Ketones NEGATIVE Urine Nitrite NEGATIVE Urine Bilirubin NEGATIVE Urine Urobilinogen 0.2 E.U./dL Urine Leukocyte Esterase NEGATIVE Urine Microscopic RBC 25-50 Urine Microscopic WBC 5-10 Urine Hemoglobin 3+ H Urine Glucose NEGATIVE Urine Total Protein 1+ H Medications Medications Current Medications Sodium Chloride (NS) 1,000 ml @ 70 mls/hr [id number] IV Last administered on 05/07 01:34; Admin Dose 70 MLS/HR; Start 05/06/17 at 22:45 Ondansetron HCl (Zofran Inj) 4 mg Q6H PRN IV NAUSEA AND/OR VOMITING; Start 11/10 at 23:00 Acetaminophen (Tylenol Tab) 650 mg Q6H PRN PO PAIN LEVEL 1-3 OR FEVER; Start at 23:00 Docusate Sodium (Colace) 100 mg Q12H PRN PO CONSTIPATION; Start 05/06/17 at 23: 00 Bisacodyl (Dulcolax) 5 mg DAILY PRN PO CONSTIPATION; Start 05/06/17 at 23:00 Famotidine 20 mg 20 mg Q12 IV Last administered on 05/07/17 01:34; Admin Dose 20 MG; Start 05/06/17 at 23:00 Ceftriaxone Sodium (Rocephin) 50 ml @ 100 mls/hr Q24H IVPB Last administered on 05/06/17 23:33; Admin Dose 100 MLS/HR; Start 05/06/17 at 23:00 Procedures Procedures PROCEDURE: US KIDNEYS AND BLADDER CLINICAL INDICATION: Renal insufficiency, urinary tract infection TECHNIQUE: Sonographic evaluation of the kidneys and bladder was performed using a curved array transducer. COMPARISON: CT scan from 05/06/2017. FINDINGS: The right kidney is absent. Left kidney measures 13.9 cm in length. Normal cortical thickness and echogenicity. There is left renal pelviectasis versus minimal hydronephrosis. The incompletely distended bladder is grossly unremarkable. IMPRESSION: Left renal pelviectasis versus minimal hydronephrosis. No renal abscess is seen. The right kidney is absent. RPTAT:PP .Humphrey Aldrich MD, MD Date Time Electronically viewed and signed by .Humphrey Aldrich MD, MD on 05/07/2017 07:32 .V/ CC: JUAN M CHAVEZ BOLATITO M. May 07, 2017 08:19
--- NOTE | 2017-05-07 11:08 | CONS ---
DATE OF ADMISSION: 05/06/2017 DATE OF CONSULTATION: TYPE OF CONSULTATION: Nephrology. REASON FOR CONSULTATION: Acute kidney injury. REQUESTING PHYSICIAN: Dr. Phillips HISTORY OF PRESENT ILLNESS: This is a 51-year-old male with a past medical history of nephrectomy s econdary to ureteral stone, history of hypertension, history of nephrolithiasis who presents to [facility] for evaluation of abdominal pain in the upper quadrant with radiation to fl ank. The patient stated that he was worried about his kidney as he has had similar pain before. As a result, he came to the emergency room for evaluation. Upon arrival, the patient had a CT scan of the abdomen and pelvis which showed findings of: 1. Left collecting system fullness. 2. Nonobstructing left renal stones. 3. Absent right kidney. In the emergency room, the patient noted to have a BUN of 27, creatinine 2.6 and a UA with positive pyuria. The patient was given IV fluids, started on IV antibiotics and admitted to med/surg for gay luation. In terms of the patient's renal history, the patient said he had a nephrectomy approximately 20 year s ago due to obstructing stones. The patient stated that as far as he understands his renal functio n has been stable. Patient has not seen a correspondence analyst. He denies any recent history of hemoptysis , hemetemesis, hematochezia, any recent rashes. PAST MEDICAL HISTORY: As stated above, history of nephrectomy, history of CKD, history of nephrolit hiasis. PAST SURGICAL HISTORY: Status post appendectomy, right nephrectomy. FAMILY HISTORY: Noncontributory. SOCIAL HISTORY: Does not drink, smoke or do drugs. MEDICATIONS: Patient medications have been reviewed. REVIEW OF SYSTEMS: A 14-point review of systems was conducted. Pertinent positives in HPI, otherwi se negative. PHYSICAL EXAMINATION: VITAL SIGNS: Blood pressure is 111/73, respirations 16, pulse 76, temperature 98.4. HEENT: Head is normocephalic. NECK: Supple. HEART: Regular rate. LUNGS: Show diminished breath sounds at base. ABDOMEN: Soft, nontender to palpation. No rebound or guarding. EXTREMITIES: Negative for clubbing, cyanosis, edema. DERMATOLOGIC: No rashes. MUSCULOSKELETAL: No joint effusions. NEUROLOGIC: No change in exam. MEDICATIONS: The patient's medications have been reviewed. LABORATORY DATA: Shows sodium 145, potassium 4.4, chloride 112, BUN 24, creatinine 1.49. White cou nt 10.2, hemoglobin 14.0, hematocrit 41.3, platelet count is 156. ASSESSMENT AND PLAN: This is a 51-year-old male who presents with: 1. Nonoliguric acute kidney injury with a history of right nephrectomy and unknown baseline creatin ine. Etiology of current acute kidney injury is likely secondary to hemodynamics, questionable sept ic acute kidney injury. The patient's urinalysis is bland, did not show active sediment. The patie nt has ongoing hematuria likely due to nephrolithiasis. The patient's renal function has improved w ith IV hydration. The patient's renal ultrasound is reviewed, shows minimal nephrosis. Plan at this point would be to continue current treatment plan. Continue IV hydration. Continue IV anti biotics. Will monitor renal function closely. May consider a urology evaluation for ongoing nephro lithiasis. 2. Nephrolithiasis. The patient has nonobstructing stones. At this point, continue aggressive IV hydration. Consider urologic evaluation. 3. Chronic kidney disease with unknown baseline creatinine in the setting of a solitary kidney. At this point, continue to treat acute kidney injury as stated above. Otherwise, continue disease, fa ctor modification. Continue IV fluids. 4. Hypernatremia. The patient's free water deficit is approximately 2 liters. Will encourage free water intake. 5. Status post right nephrectomy. Thank you, Dr. Phillips, for this interesting consult. It will be a pleasure to follow patient with you throughout the hospital course. Dictated By: DAFNE CONTRERAS DO NR/KRYSTLE Conf#: [id number] DID#: [id number]
[2017-05-07 13:47] LABS: ADD UMIC YES; UR BILIRUBIN (Dip) NEGATIVE (NEGATIVE); UR BLOOD (Dip) 1+ (NEGATIVE); UR CLARITY CLEAR (CLEAR); UR COLOR LT. YELLOW (YELLOW); UR GLUCOSE (Dip) NEGATIVE (NEGATIVE); UR KETONES (Dip) NEGATIVE (NEGATIVE); UR LEUKOCYTE ESTERASE (Dip) NEGATIVE (NEGATIVE); UR NITRITE (Dip) NEGATIVE (NEGATIVE); UR TOTAL PROTEIN (Dip) NEGATIVE (NEGATIVE); UR UROBILINOGEN (Dip) 0.2 E.U./dL (0.1-1.0)
[2017-05-07 13:55] LABS: URINE RBCS 0-2 /HPF (0)
[2017-05-07 20:05] VITALS: BP 110/73; RESP 18
[2017-05-07] MEDS: CEFTRIAXONE 1 GM/50 ML (PMX) 50 ML IVPB SCH (22:34)
[2017-05-08] MEDS: SOD CHLORIDE 0.9% 1,000 ML IV SCH ×3 (03:21→20:08)
[2017-05-08 04:59] LABS: ADD SCAN DIFF NO
[2017-05-08 05:12] LABS: ABNORMAL IP MESSAGE 1; BASOPHILS % 0.3 % (0.0-2.0); EOSINOPHILS # 0.2 10^3/ul (0.0-0.5); EOSINOPHILS % 3.3 % (0.0-7.0); HEMATOCRIT 41.5 % (42.0-52.0); HEMOGLOBIN 13.9 g/dl (14.0-18.0); LYMPHOCYTES # 2.2 10^3/ul (0.8-2.9); LYMPHOCYTES % 33.2 % (15.0-51.0); MEAN CORPUSCULAR HEMOGLOBIN 29.6 pg (29.0-33.0); MEAN CORPUSCULAR HGB CONC 33.5 g/dl (32.0-37.0); MEAN CORPUSCULAR VOLUME 88.5 fl (82.0-101.0); MEAN PLATELET VOLUME 13.2 fl (7.4-10.4); MONOCYTE # 0.6 10^3/ul (0.3-0.9); MONOCYTES % 8.6 % (0.0-11.0); NEUTROPHIL # 3.6 10^3/ul (1.6-7.5); NEUTROPHILS % 54.2 % (39.0-77.0); PLATELET COUNT 145 10^3/UL (140-415); RED BLOOD COUNT 4.69 10^6/ul (4.70-6.10); RED CELL DISTRIBUTION WIDTH 13.9 % (11.5-14.5); WHITE BLOOD COUNT 6.7 10^3/ul (4.8-10.8)
[2017-05-08 06:29] LABS: CALCIUM 8.9 mg/dl (8.4-10.2); CREATININE 1.27 mg/dl (0.61-1.24); MAGNESIUM 1.9 mg/dl (1.7-2.5); PHOSPHORUS 4.9 mg/dl (2.5-4.9); POTASSIUM 3.9 mmol/L (3.5-5.1)
[2017-05-08 07:00] VITALS: BP 121/76; RESP 18
[2017-05-08] MEDS: FAMOTIDINE 20 MG INJ IV SCH (09:15)
--- NOTE | 2017-05-08 10:41 | PN ---
DATE: 05/08/2017 SUBJECTIVE: The patient is stable, no acute events overnight. No fevers, chills, nausea, vomiting. No shortness of breath. OBJECTIVE: VITAL SIGNS: Blood pressure is 121/76, respirations 18, pulse 66, temperature 97.9. HEENT: Head is normocephalic. NECK: Supple. HEART: Regular rate. LUNGS: Show diminished breath sounds at the bases. ABDOMEN: Soft, nontender to palpation. No rebound or guarding. EXTREMITIES: Negative for clubbing, cyanosis. No edema. DERMATOLOGIC: No rashes. MUSCULOSKELETAL: No joint effusions. NEUROLOGIC: No change in exam. MEDICATIONS: The patient's medications have been reviewed. LABORATORY DATA: Shows sodium of 145, BUN 19, creatinine 1.27. White count 6.7, hemoglobin 13.9, h ematocrit 41.5, platelet count 145. ASSESSMENT AND PLAN: 1. Nonoliguric acute kidney injury with unilateral kidney and unknown baseline creatinine. Etiolog y of acute kidney injury is likely due to hemodynamics, possible septic acute kidney injury. The viky pelayo's renal function has improved with IV fluids. The patient's renal ultrasound was reviewed. A t this point, continue current treatment plan, supportive care, renally dose all meds, continue IV f luids, IV antibiotics. 2. Nephrolithiasis with nonobstructing stone. Continue IV hydration. 3. Chronic kidney disease with unknown baseline creatinine in the setting of solitary kidney. At t his point, continue treating acute kidney injury as stated above. Continue disease factor modificat ion, IV fluids. 4. Hypernatremia. The patient has a free water deficit of approximately 2 liters. Continue to enc ourage free water intake. 5. Status post right nephrectomy. 6. Mild anemia. Monitor hemoglobin and hematocrit levels. Dictated By: DAFNE PALMER/KRYSTLE Conf#: [id number] DID#: [id number]
[2017-05-08 14:29] LABS: MICROALBUMIN 3.3 mg/dL
--- NOTE | 2017-05-08 17:41 | PN ---
Date/Time of Note Date/Time of Note DATE: 05/08/17 TIME: 17:40 Assessment/Plan VTE Prophylaxis VTE Prophylaxis Intervention: SCD's Lines/Catheters IV Catheter Type (from Nrsg): Peripheral IV Urinary Cath still in place: No Assessment/Plan Assessment/Plan 1. NonOliguric KAREN 2. UTI 3. Nephrolithiasis plan: conitnue IVF Pain control IV abx for UTI renal following possible d/c home tomorrow Subjective 24 Hr Interval Summary Free Text/Dictation doing ok, no complaints, Cr improving but still not normal Exam/Review of Systems Vital Signs Vitals Vital Signs Date Time Temp Pulse Resp B/P Pulse Ox O2 Delivery O2 Flow Rate FiO2 05/08/17 07:00 97.9 66 18 121/76 98 05/07/17 01:27 Room Air Intake and Output 05/07/17 05/07/17 05/08/17 15:00 23:00 07:00 Intake Total 2180 ml 700 ml Output Total 600 ml 700 ml Balance 1580 ml 0 ml Exam Constitutional: alert Psych: no complaints Head: normocephalic Eyes: nl conjunctiva ENMT: nl external ears & nose Neck: supple Respiratory: clear to auscultation Cardiovascular: nl pulses, regular rate and rhythm Gastrointestinal: non-tender, soft Extremities: normal pulses Neurological: WATCH CRYSTAL MOLDER II-XII intact Results Result Diagram: 05/08/17 0420 05/08/17 0420 Results 24 hrs Laboratory Tests Test 05/08/17 04:20 White Blood Count 6.7 Red Blood Count 4.69 L Hemoglobin 13.9 L Hematocrit 41.5 L Mean Corpuscular Volume 88.5 Mean Corpuscular Hemoglobin 29.6 Mean Corpuscular Hemoglobin Concent 33.5 Red Cell Distribution Width 13.9 Platelet Count 145 Mean Platelet Volume 13.2 H Neutrophils % 54.2 Lymphocytes % 33.2 Monocytes % 8.6 Eosinophils % 3.3 Basophils % 0.3 Nucleated Red Blood Cells % 0.0 Neutrophils # 3.6 Lymphocytes # 2.2 Monocytes # 0.6 Eosinophils # 0.2 Basophils # 0.0 Nucleated Red Blood Cells # 0.0 Sodium Level 145 H Potassium Level 3.9 Chloride Level 110 Carbon Dioxide Level 27 Anion Gap 12 Blood Urea Nitrogen 19 Creatinine 1.27 H Glucose Level 90 Calcium Level 8.9 Phosphorus Level 4.9 Magnesium Level 1.9 Medications Medications Current Medications Sodium Chloride (NS) 1,000 ml @ 70 mls/hr [id number] IV Last administered on 05/08 05:10; Admin Dose 70 MLS/HR; Start 05/06/17 at 22:45 Ondansetron HCl (Zofran Inj) 4 mg Q6H PRN IV NAUSEA AND/OR VOMITING; Start 11/10 at 23:00 Acetaminophen (Tylenol Tab) 650 mg Q6H PRN PO PAIN LEVEL 1-3 OR FEVER; Start at 23:00 Docusate Sodium (Colace) 100 mg Q12H PRN PO CONSTIPATION; Start 05/06/17 at 23: 00 Bisacodyl 5 mg 5 mg DAILY PRN PO CONSTIPATION; Start 05/06/17 at 23:00 Ceftriaxone Sodium (Rocephin) 50 ml @ 100 mls/hr Q24H IVPB Last administered on 05/07/17 22:34; Admin Dose 100 MLS/HR; Start 05/06/17 at 23:00 Famotidine (Pepcid) 20 mg Q12 PO ; Start 05/08/17 at 21:00 PROSPER MANNING MD May 08, 2017 17:41
[2017-05-08 19:27] VITALS: BP 133/87; RESP 19
[2017-05-08] MEDS: FAMOTIDINE 20 MG TAB PO SCH (20:07)
[2017-05-08] MEDS: CEFTRIAXONE 1 GM/50 ML (PMX) 50 ML IVPB SCH (22:51)
[2017-05-09 05:11] LABS: ADD SCAN DIFF NO
[2017-05-09 05:22] LABS: BASOPHILS % 0.3 % (0.0-2.0); EOSINOPHILS # 0.2 10^3/ul (0.0-0.5); EOSINOPHILS % 3.2 % (0.0-7.0); HEMATOCRIT 40.9 % (42.0-52.0); HEMOGLOBIN 13.6 g/dl (14.0-18.0); LYMPHOCYTES # 2.4 10^3/ul (0.8-2.9); MEAN CORPUSCULAR HEMOGLOBIN 29.4 pg (29.0-33.0); MEAN CORPUSCULAR HGB CONC 33.3 g/dl (32.0-37.0); MEAN CORPUSCULAR VOLUME 88.5 fl (82.0-101.0); MEAN PLATELET VOLUME 12.5 fl (7.4-10.4); MONOCYTE # 0.5 10^3/ul (0.3-0.9); MONOCYTES % 7.7 % (0.0-11.0); NEUTROPHIL # 3.1 10^3/ul (1.6-7.5); NEUTROPHILS % 50.5 % (39.0-77.0); PLATELET COUNT 144 10^3/UL (140-415); RED BLOOD COUNT 4.62 10^6/ul (4.70-6.10); RED CELL DISTRIBUTION WIDTH 13.6 % (11.5-14.5); WHITE BLOOD COUNT 6.2 10^3/ul (4.8-10.8)
[2017-05-09 06:01] LABS: CALCIUM 8.7 mg/dl (8.4-10.2); CREATININE 1.1 mg/dl (0.61-1.24); MAGNESIUM 1.8 mg/dl (1.7-2.5); PHOSPHORUS 4.7 mg/dl (2.5-4.9); POTASSIUM 3.8 mmol/L (3.5-5.1)
[2017-05-09 08:07] VITALS: BP 116/75; RESP 20
[2017-05-09] MEDS: FAMOTIDINE 20 MG TAB PO SCH (08:31)
[2017-05-09] MEDS: SOD CHLORIDE 0.9% 1,000 ML IV SCH (08:32)
--- NOTE | 2017-05-09 09:47 | PN ---
DATE: 05/09/2017 SUBJECTIVE: The patient is stable. No acute events overnight. Denies fevers, chills, nausea, vomi ting. No shortness of breath. OBJECTIVE: VITAL SIGNS: Blood pressure is 160/75, respiration 20, pulse 70, temperature 98.5. HEENT: Head is normocephalic. NECK: Supple. HEART: Regular rate. LUNGS: Show diminished breath sounds at base, otherwise clear. ABDOMEN: Soft, nontender to palpation without rebound or guarding. EXTREMITIES: Negative for clubbing, cyanosis, edema. DERMATOLOGIC: No rashes. MUSCULOSKELETAL: No joint effusions. NEUROLOGIC: No change in exam. MEDICATIONS: The patient's medications reviewed. LABORATORY DATA: Shows CMP within normal limits. White count 6.2, hemoglobin 13.6, hematocrit ____ , platelet count is 144. ASSESSMENT AND PLAN: 1. Nonoliguric acute kidney injury with unknown baseline creatinine in the setting of a unilateral kidney. Etiology is secondary to hemodynamics. Renal function subsequently improved with IV fluids . Plan at this point is to discontinue IV fluids and monitor renal function closely. 2. Nephrolithiasis with nonobstructing stone. Continue to monitor, continue IV antibiotics. 3. Chronic kidney disease with unknown baseline creatinine ____ of a unilateral kidney. At this po int, the patient has acute kidney injury, recovering well. Continue to monitor. Continue risk fact or modification. 4. Hyponatremia, improved. 5. Status post right nephrectomy. 6. Anemia. Continue to monitor hemoglobin and hematocrit levels. Dictated By: DAFNE PALMER/KRYSTLE Conf#: [id number] DID#: [id number]
--- NOTE | 2017-05-09 12:18 | PDOCDIS ---
Discharge Instructions CONDITION Patient Condition: Good HOME CARE INSTRUCTIONS: Diet Instructions: Regular ACTIVITY: Activity Restrictions: Slowly Increase Activity Rest between Activity Avoid heavy lifting Avoid Heavy Housework FOLLOW UP/APPOINTMENTS Appointments follow up with his own PMD through HMO insurance in 1-2 week after discharge PROSPER MANNING MD May 09, 2017 12:18
[2017-05-09] MEDS ORDERED: CIPR500T4 PO (12:19)
== END 2017-05-09 15:19 | disposition home or self-care (01) | DRG 683 ==
LOC: FTE 16:31 → MS1 22:48
PROVIDERS: ADMIT Family Medicine; ATTEND Family Medicine
DX: N17.9 Acute kidney failure, unspecified (principal); N39.0 Urinary tract infection, site not specified; E87.0 Hyperosmolality and hypernatremia; Z68.41 Body mass index [BMI] 40.0-44.9, adult; N20.0 Calculus of kidney; N18.9 Chronic kidney disease, unspecified; E66.01 Morbid (severe) obesity due to excess calories; D64.9 Anemia, unspecified; Z90.5 Acquired absence of kidney
CPT/HCPCS: 74176; 76775; 80048; 80053; 81001; 81003; 82043; 83690; 83735; 84100; 84155; 84300; 85025; 87086; 96365; 96367; 96375; J0692; J0696; J7030

== ENCOUNTER 2017-09-16 09:27 | Inpatient (IN) | payer MEDICAID ==
[~2017-09-16] VITALS: Ht 167.6 cm; Wt 100.7 kg
[~2017-09-16 09:27] MED LIST changes: +CIPR500T4 PO
[2017-09-16] MEDS ORDERED: ONDANSETRON 4 MG INJ IV STA (09:51)
[2017-09-16] MEDS ORDERED: SOD CHLORIDE 0.9% 1,000 ML IV STA (09:51)
[2017-09-16] MEDS ORDERED: morphine 4 MG/ML VIAL IV STA (09:51)
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
--- NOTE | 2017-09-16 11:02 | RADRPT ---
PROCEDURE: CT Abdomen and Pelvis without contrast. CLINICAL INDICATION: Left flank pain TECHNIQUE: CT scan of the abdomen and pelvis without contrast was performed on a multidetector hig h-resolution CT scanner. The patient was scanned without intravenous contrast. Coronal and sagittal reformatted images were obtained from the axial source images. Images were reviewed on a high-resol [employer] PACS workstation. The total exam CTDI equals 20.96 mGy and the total exam DLP equals 1355.8 mG y-cm. One or more of the following dose reduction techniques were used: Automated exposure control. Adjustment of the mA and/or kV according to patient size. Use of iterative reconstruction technique. COMPARISON: CT abdomen and pelvis 05/06/2017. FINDINGS: CT abdomen: The lung bases are remarkable for focal cystic bronchiectasis in the right lung base. The heart siz e is normal, without pericardial thickening or effusion. There is hepatomegaly with fatty infiltration. The spleen is normal in size and homogeneous in densi ty. The stomach is partially collapsed, but is grossly unremarkable. The pancreas as visualized is normal. The gallbladder is unremarkable. There is no evidence for biliary dilatation. The adrenal glands are symmetric and normal. There is mild left hydroureteronephrosis related to 3 mm obstructi ng stone in the left UVJ. There are a few punctate 2-3 mm nonobstructing left renal stones. Right ki dney is absent. The aorta is of normal caliber. Aortic vascular calcifications are present. There is no retroperit gomez lymphadenopathy. The kieran hepatis region is clear. The bowel and mesentery, as visualized, are equally unremarkable. CT pelvis: The small bowel loops situated within the pelvis are unremarkable. The pelvic organs are normal. T he pelvic sidewalls and inguinal regions are clear. The sigmoid colon and rectum are remarkable for a few scattered sigmoid diverticula without evidence of acute diverticulitis.. No mass, lymphadeno prasanna, or free fluid is seen. No acute inflammation is seen. The surrounding osseous structures ar e remarkable for degenerative spondylosis of the spine. No osteolytic or osteoblastic lesion is det ected. IMPRESSION: 1. Left hydroureteronephrosis with perinephric fatty stranding related to 3 mm obstructing stone in the left UVJ. Additional punctate 2-3 mm nonobstructing left renal stones. 2. Hepatomegaly with fatty infiltration. 3. Few scattered sigmoid diverticula without evidence of acute diverticulitis. 4. Absent right kidney. RPTAT: BB .Walter Colvin MD, Date Time Electronically viewed and signed by .Walter Colvin MD, MD on 09/16/2017 11:01 .O/
[2017-09-16] MEDS ORDERED: SOD CHLORIDE 0.9% 1,000 ML IV SCH (13:26)
[2017-09-16] MEDS ORDERED: ACETAMINOPHEN 325 MG TAB PO PRN ×2 (13:30→16:30)
[2017-09-16] MEDS ORDERED: ONDANSETRON 4 MG INJ IV PRN ×2 (13:30→16:30)
[2017-09-16] MEDS ORDERED: hydrALAzine 20 MG INJ IV PRN (16:30)
[2017-09-16] MEDS ORDERED: NACL 0.9% 3 ML SYG IV SCH (16:30)
[2017-09-16] MEDS ORDERED: DOCUSATE SODIUM 100 MG CAP PO PRN (16:30)
[2017-09-16] MEDS ORDERED: NITROGLYCERIN (SL) 0.4 MG TAB SL PRN (16:30)
[2017-09-16] MEDS ORDERED: NA PHOSPHATE/BIPHOS 133 ML ENEMA PR PRN (16:30)
[2017-09-16] MEDS ORDERED: MAGNESIUM HYDROXIDE 30ML CUP PO PRN (16:30)
[2017-09-16] MEDS ORDERED: LORAZEPAM 2 MG INJ IV PRN (16:30)
[2017-09-16] MEDS ORDERED: HYDROCODONE/APAP (5/325) TAB PO PRN (16:30)
[2017-09-16] MEDS ORDERED: ALBUTEROL/IPRATROPIUM (NEB) 3 ML AMP HHN PRN (16:30)
[2017-09-16] MEDS ORDERED: LEVOFLOXACIN 750MG/D5W (PMX) 150 ML IVPB SCH (18:00)
[2017-09-16 18:13] VITALS: TEMP 98.6
--- NOTE | 2017-09-16 18:13 | HP ---
DATE OF ADMISSION: 09/16/2017 IDENTIFICATION: This is a 51-year-old male. CHIEF COMPLAINT: Left flank pain. HISTORY OF PRESENT ILLNESS: The patient is a 51-year-old male, past medical history of appendectomy, prior kidney stones, right- sided nephrectomy 20 years ago who presents with left flank pain that began 1 day ago. The pain does radiate to his left groin, but denies any nausea or vomiting. No fevers or chills. No upper or lower GI bleeding. No diarrhea or constipation. No headaches or dizziness. No loss of consciousness. No chest pain. He has had some mild abdominal pain; however, did not take any medicines to help relieve the pain. When he came in today, he had a CT scan performed of the abdomen and pelvis that does show a left hydroureteronephrosis with perinephric fat stranding related to a 3 mm obstructing stone in the left UVJ and additional punctate 2-3 mm nonobstructing left renal stones were found. The patient was last here at our hospital from her May 06 to May 09, 2017. At that time, he was also treated for a kidney stone and renal insufficiency secondary to urinary tract infection and kidney stone at that time. Denies hematuria, but does state decreased urine output in the last 24 hours. PAST MEDICAL HISTORY: As stated above. ALLERGIES: NO KNOWN DRUG ALLERGIES. MEDICATIONS: Home medications looks like Tylenol number 3 p.r.n. PAST SURGICAL HISTORY: 1. Appendectomy in the past. 2. Right nephrectomy in the past. SOCIAL HISTORY: Negative for smoking, drinking, IV drug use. FAMILY HISTORY: Noncontributory. PHYSICAL EXAMINATION: VITAL SIGNS: Today, T-max 98.6, pulse 78, respiratory rate 20, blood pressure 154/90, satting at 98 percent on room air. GENERAL: The patient is sitting in bed, answering questions appropriately. She is in mild distress. HEENT: Pupils equal, round, reactive to light. Extraocular muscles intact. NECK: Supple. No thyromegaly. LUNGS: Clear to auscultation bilaterally. CARDIOVASCULAR: S1, S2 heard. No rubs or gallops. ABDOMEN: Mild tenderness to palpation in the left flank area. Otherwise, normal bowel sounds. No rebound or guarding. MUSCULOSKELETAL: No lower extremity edema bilaterally. NEUROLOGIC: No focal deficits. LABS: CBC is normal. Comprehensive metabolic panel is normal except the BUN is 24, creatinine is 2.16. When he was here in 04/2017, his creatinine was 1.1. We mentioned the CT abdomen and pelvis results. ASSESSMENT AND PLAN: The patient is a 51-year-old male, past medical history of prior kidney stones and right-sided nephrectomy who presents with left flank pain with the findings of hydroureteroneprhosis and left-sided kidney stones. 1. Left flank pain. Again, less likely secondary to a kidney stone. Follow up the urinalysis results. Follow-up TSH, A1c and lipid panel. We will go ahead and start him on low-dose antibiotics, intravenous fluids and pain control medications as well. Hopefully patient can pass the stone. Apparently urology team was called in the Emergency Room, who recommended just conservative management at this time. 2. Renal insufficiency. Again likely secondary to patient's renal stone. Continue aggressive intravenous fluid hydration. Monitor urine output. Monitor creatinine levels. 3. History of right-sided nephrectomy. Again, this is apparently prior over 20 years ago and that was secondary to kidney stones at that time. Continue to monitor for now. 4. Prior appendectomy. No present issues. Continue to monitor for now. Dictated By: Dewey Goldsmith MD /juana/sapna /Document#: [id number]
[2017-09-16 18:55] VITALS: BP 141/82; PULSE 69; RESP 17
[2017-09-16 20:27] VITALS: BP 122/75; RESP 20
[2017-09-16] MEDS: morphine 2 MG INJ IV PRN (20:57)
[2017-09-16] MEDS: SOD CHLORIDE 0.9% 1,000 ML IV SCH (20:58)
[2017-09-16] MEDS: HEPARIN 5,000 UNIT/0.5 ML VIAL SC SCH (21:19)
[2017-09-16 21:23] VITALS: Ht 167.6 cm; Wt 100.7 kg
[2017-09-17] VITALS (9 sets, daily range): BP systolic 102–140; BP diastolic 64–80; PULSE 80–94; RESP 14–25
[2017-09-17] MEDS: SOD CHLORIDE 0.9% 1,000 ML IV SCH ×3 (02:25→12:31)
[2017-09-17] MEDS: PANTOPRAZOLE (EC) 40 MG TAB PO SCH (05:35)
[2017-09-17] MEDS: HEPARIN 5,000 UNIT/0.5 ML VIAL SC SCH ×2 (08:49→21:00)
--- NOTE | 2017-09-17 10:25 | CONS ---
Date/Time of Note Date/Time of Note DATE: 09/17/17 TIME: 10:24 Assessment/Plan Assessment/Plan Additional Assessment/Plan 1. Acute kidney Injury due to obstructive uropathy, 2. H/o right nephrectomy due to obstructing kidney stone as per patient 3> left pyelonephritis 4. Intractable left flank pain Plan: Continue IV abx for Pyelonpehritis, follow up on urine cx- renally dose abx, discussed with pharmacy continue IVF NS at 100 cc/hr BP stable pt need urology consult for left UVJ stone, communicated with for Urology consult, will appreciate Urology help in this case Thanks for consultation, we will conitnue to follow up on patient. Consultation Date/Type/Reason Admit Date/Time Sep 16, 2017 at 13:27 Date of Consultation: Sep 17, 2017 Type of Consultation: NEPHROLOGY Reason for Consultation acute obstructive uropathy, Left UVJ stone Referring Provider: MONALISA DOUGLASS Hx of Present Illness 51-year-old male,past medical history of appendectomy, prior kidney stones, right- sided nephrectomy 20 years ago due to obstructing Kidney stones as per patient who presents with left flank pain- he gets admitted for left pyelonephritis and left flank pain, has been starated on IV levaquin for Left pyelonephritis. pt has a BUN/Cr on admission which bumped to 36/5.08- pt has obstructinve left UVJ stone causing left moderate hydroureteronephrosis. Renal has been consulted for KAREN due to obstructive uropathy and worsening renal function. Constitutional: no complaints Eyes: no complaints, pain ENT: no complaints Respiratory: no complaints Cardiovascular: no complaints Gastrointestinal: no complaints Genitourinary: dysuria, flank pain (left flank pain ) Musculoskeletal: no complaints Skin: no complaints Neurologic: no complaints Endocrine: no complaints Lymphatic: no complaints Psychological: no complaints Immunologic: no complaints Past Medical History Medical History: high cholesterol, hypertension Past Surgical History Past Surgical Hx: no surgical history Family History Significant Family History: no pertinent family hx Social History Alcohol Use: none Smoking Status: Never smoker Drug Use: none Exam/Review of Systems Vital Signs Vitals Vital Signs Date Time Temp Pulse Resp B/P Pulse Ox O2 Delivery O2 Flow Rate FiO2 09/17/17 07:51 98.2 65 18 113/64 94 09/16/17 18:55 Room Air Intake and Output 09/16/17 09/16/17 09/17/17 15:00 23:00 07:00 Intake Total 100 ml 795 ml Balance 100 ml 795 ml Exam Constitutional: alert Psych: no complaints Head: normocephalic Eyes: nl conjunctiva ENMT: nl external ears & nose Neck: non-tender, supple Respiratory: clear to auscultation, normal air movement Cardiovascular: nl pulses, regular rate and rhythm Gastrointestinal: soft, tender (left CVA tenderness ) Musculoskeletal: nl extremities to inspection, nl gait and stance Extremities: normal pulses Neurological: ENGRAVING OPERATOR II-XII intact, nl mental status, nl speech, nl strength Skin: nl turgor Lymph: nl lymph nodes Results Result Diagram: 09/17/1751809/17/17518 Results 24 hrs Laboratory Tests Test 09/16/17 14:00 09/17/17 05:19 Prothrombin Time 13.8 Prothrombin Time Ratio 1.1 INR International Normalized Ratio 1.06 Activated Partial Thromboplast Time 34.3 Free Thyroxine 0.97 White Blood Count 8.9 Red Blood Count 4.40 L Hemoglobin 12.8 L Hematocrit 38.9 L Mean Corpuscular Volume 88.4 Mean Corpuscular Hemoglobin 29.1 Mean Corpuscular Hemoglobin Concent 32.9 Red Cell Distribution Width 13.6 Platelet Count 132 L Mean Platelet Volume 13.5 H Neutrophils % 73.2 Lymphocytes % 15.1 Monocytes % 11.0 Eosinophils % 0.3 Basophils % 0.1 Nucleated Red Blood Cells % 0.0 Neutrophils # 6.5 Lymphocytes # 1.4 Monocytes # 1.0 H Eosinophils # 0.0 Basophils # 0.0 Nucleated Red Blood Cells # 0.0 Sodium Level 141 Potassium Level 4.5 Chloride Level 109 Carbon Dioxide Level 21 Anion Gap 16 Blood Urea Nitrogen 36 #H Creatinine 5.08 #H Glucose Level 91 Hemoglobin A1c 5.0 Calcium Level 8.1 L Phosphorus Level 4.8 Magnesium Level 1.8 Triglycerides Level 161 H Cholesterol Level 128 LDL Cholesterol, Calculated 70 HDL Cholesterol 26 L Cholesterol/HDL Ratio 4.9 Thyroid Stimulating Hormone (TSH) 0.858 Medications Medications Current Medications Ondansetron HCl (Zofran Inj) 4 mg Q6H PRN IV NAUSEA AND/OR VOMITING; Start at 16:30 Acetaminophen (Tylenol Tab) 650 mg Q6H PRN PO PAIN LEVEL 1-3 OR FEVER; Start 09/16/17 at 16:30 Acetaminophen/ Hydrocodone Bitart ([place] (5/325)) 1 tab Q6H PRN PO MODERATE PAIN LEVEL 4-6 Last administered on 09/16/17 23:14; Admin Dose 1 TAB; Start 09/16/17 at 16:30 Morphine Sulfate (morphine) 2 mg Q4H PRN IV SEVERE PAIN LEVEL 7-10 Last administered on 09/16/17 20:57; Admin Dose 2 MG; Start 09/16/17 at 16:30 Docusate Sodium (Colace) 100 mg Q12H PRN PO CONSTIPATION; Start 09/16/17 at 16 :30 Magnesium Hydroxide (Milk Of Mag) 30 ml DAILY PRN PO CONSTIPATION; Start 09/16 at 16:30 Sodium Biphosphate/ Sodium Phosphate (Fleet Enema) 133 ml DAILY PRN [place] CONSTIPATION; Start 09/16/17 at 16:30 Pantoprazole (Protonix Tab) 40 mg DAILY@06 PO Last administered on 09/17/17 05:35; Admin Dose 40 MG; Start 09/17/17 at 06:00 Heparin Sodium (Porcine) (Heparin (5000 Units/0.5 ml)) 5,000 unit Q12 SC Last administered on 09/17/17 08:49; Admin Dose 5,000 UNIT; Start 09/16/17 at 21: 00 Lorazepam 0.5 mg 0.5 mg Q6H PRN IV ANXIETY; Start 09/16/17 at 16:30 Sodium Chloride 1,000 ml @ 100 mls/hr Q10H IV Last administered on 09/17/17 08:46; Admin Dose 100 MLS/HR; Start 09/16/17 at 16:25 Levofloxacin/ Dextrose (Levaquin 750 Mg/ D5W 150 ml (Pmx)) 150 ml @ 100 mls/hr Q48H IVPB Last administered on 09/16/17 21:43; Admin Dose 100 MLS/HR; Start 09/16/17 at 18:00 Hydralazine HCl (Apresoline) 10 mg Q6H PRN IV ELEVATED BLOOD PRESSURE; Start 09/16/17 at 16:30 Clonidine (Catapres) 0.1 mg Q6H PRN PO ELEVATED BLOOD PRESSURE; Start at 16:30 Nitroglycerin (Nitroglycerin (Sl Tab) 0.4 Mg) 1 tab Q5M PRN SL ANGINA; Start 09/16/17 at 16:30 PROSPER MANNING MD Sep 17, 2017 10:25
[2017-09-17] MEDS: TAMSULOSIN (SR) 0.4 MG CAP PO SCH (12:48)
--- NOTE | 2017-09-17 14:01 | RADRPT ---
PROCEDURE: Renal US. CLINICAL INDICATION: eval for hydro on left TECHNIQUE: Multiple sonographic images of the kidneys were obtained. The images were reviewed on a PACS workstation. COMPARISON: No prior studies are available for comparison. FINDINGS: The right kidney is surgically absent. The left kidney measures 13.4 cm. There are no focal areas of abnormal echogenicity. There is no evidence for obstructive uropathy. IMPRESSION: Surgically absent right kidney. Mild hydronephrosis of the left kidney. RPTAT: GG .Chrissie Stallworth MD, Date Time Electronically viewed and signed by .Chrissie Stallworth MD, MD on 09/17/2017 14:01 .G/
[2017-09-17] MEDS: morphine 2 MG INJ IV PRN (15:42)
--- NOTE | 2017-09-17 16:21 | PN ---
Date/Time of Note Date/Time of Note DATE: 09/17/17 TIME: 16:18 Assessment/Plan VTE Prophylaxis VTE Prophylaxis Intervention: heparin Lines/Catheters IV [facility]ter Type (from [email or web address] Peripheral IV Assessment/Plan Chief Complaint/Hosp Course ASSESSMENT AND PLAN: 51-year-old male, past medical history of prior kidney stones and right-sided nephrectomy who presents with left flank pain with the findings of hydroureteroneprhosis and left-sided kidney stones. 1. Left flank pain. Again, likely secondary to a kidney stone. Continue antibiotics, intravenous fluids and pain control medications as well. Hopefully patient can pass the stone. -Upon discussion with urology team they will come later today for stent placement and possible stone extraction given the location of the stone now and renal insufficiency. 2. Renal insufficiency -significantly worsened today, very minimal urine output presently. Again likely secondary to patient's renal stone. Appreciate renal consult -Continue aggressive intravenous fluid hydration. Monitor urine output. - Monitor creatinine levels, follow-up renal recommendations 3. History of right-sided nephrectomy. Again, this is apparently prior over 20 years ago and that was secondary to kidney stones at that time. Continue to monitor for now. 4. Prior appendectomy. No present issues. Continue to monitor for now. Problems: Subjective 24 Hr Interval Summary Free Text/Dictation Patient with very minimal urine output presently. Creatinine has elevated significantly as well, seen by renal team earlier today. Otherwise no acute events overnight. Awaiting urology input for possible stent placement given location of the stone. Exam/Review of Systems Vital Signs Vitals Vital Signs Date Time Temp Pulse Resp B/P Pulse Ox O2 Delivery O2 Flow Rate FiO2 09/17/17 14:35 97.8 69 16 113/66 96 09/16/17 18:55 Room Air Intake and Output 09/16/17 09/16/17 09/17/17 15:00 23:00 07:00 Intake Total 100 ml 795 ml Balance 100 ml 795 ml Exam GENERAL: The patient is sitting in bed, answering questions appropriately. She is in mild distress. HEENT: Pupils equal, round, reactive to light. Extraocular muscles intact. NECK: Supple. No thyromegaly. LUNGS: Clear to auscultation bilaterally. CARDIOVASCULAR: S1, S2 heard. No rubs or gallops. ABDOMEN: Mild tenderness to palpation in the left flank area. Otherwise, normal bowel sounds. No rebound or guarding. MUSCULOSKELETAL: No lower extremity edema bilaterally. NEUROLOGIC: No focal deficits. Results Result Diagram: 09/17/1719 09/17/1719 Results 24 hrs Laboratory Tests Test 09/17/17 05:19 White Blood Count 8.9 Red Blood Count 4.40 L Hemoglobin 12.8 L Hematocrit 38.9 L Mean Corpuscular Volume 88.4 Mean Corpuscular Hemoglobin 29.1 Mean Corpuscular Hemoglobin Concent 32.9 Red Cell Distribution Width 13.6 Platelet Count 132 L Mean Platelet Volume 13.5 H Neutrophils % 73.2 Lymphocytes % 15.1 Monocytes % 11.0 Eosinophils % 0.3 Basophils % 0.1 Nucleated Red Blood Cells % 0.0 Neutrophils # 6.5 Lymphocytes # 1.4 Monocytes # 1.0 H Eosinophils # 0.0 Basophils # 0.0 Nucleated Red Blood Cells # 0.0 Sodium Level 141 Potassium Level 4.5 Chloride Level 109 Carbon Dioxide Level 21 Anion Gap 16 Blood Urea Nitrogen 36 #H Creatinine 5.08 #H Glucose Level 91 Hemoglobin A1c 5.0 Calcium Level 8.1 L Phosphorus Level 4.8 Magnesium Level 1.8 Triglycerides Level 161 H Cholesterol Level 128 LDL Cholesterol, Calculated 70 HDL Cholesterol 26 L Cholesterol/HDL Ratio 4.9 Thyroid Stimulating Hormone (TSH) 0.858 Medications Medications Current Medications Ondansetron HCl (Zofran Inj) 4 mg Q6H PRN IV NAUSEA AND/OR VOMITING; Start at 16:30 Acetaminophen (Tylenol Tab) 650 mg Q6H PRN PO PAIN LEVEL 1-3 OR FEVER; Start 09/16/17 at 16:30 Acetaminophen/ Hydrocodone Bitart ([place] (5/325)) 1 tab Q6H PRN PO MODERATE PAIN LEVEL 4-6 Last administered on 09/16/17 23:14; Admin Dose 1 TAB; Start 09/16/17 at 16:30 Morphine Sulfate (morphine) 2 mg Q4H PRN IV SEVERE PAIN LEVEL 7-10 Last administered on 09/17/17 15:42; Admin Dose 2 MG; Start 09/16/17 at 16:30 Docusate Sodium (Colace) 100 mg Q12H PRN PO CONSTIPATION; Start 09/16/17 at 16 :30 Magnesium Hydroxide (Milk Of Mag) 30 ml DAILY PRN PO CONSTIPATION; Start 09/16 at 16:30 Sodium Biphosphate/ Sodium Phosphate (Fleet Enema) 133 ml DAILY PRN [place] CONSTIPATION; Start 09/16/17 at 16:30 Pantoprazole (Protonix Tab) 40 mg DAILY@06 PO Last administered on 09/17/17 05:35; Admin Dose 40 MG; Start 09/17/17 at 06:00 Heparin Sodium (Porcine) (Heparin (5000 Units/0.5 ml)) 5,000 unit Q12 SC Last administered on 09/17/17 08:49; Admin Dose 5,000 UNIT; Start 09/16/17 at 21: 00 Lorazepam 0.5 mg 0.5 mg Q6H PRN IV ANXIETY; Start 09/16/17 at 16:30 Sodium Chloride (NS) 1,000 ml @ 0 mls/hr Q10H IV Last administered on 12:31; Admin Dose 20 MLS/HR; Start 09/16/17 at 16:25 Hydralazine HCl (Apresoline) 10 mg Q6H PRN IV ELEVATED BLOOD PRESSURE; Start 09/16/17 at 16:30 Clonidine (Catapres) 0.1 mg Q6H PRN PO ELEVATED BLOOD PRESSURE; Start at 16:30 Nitroglycerin (Nitroglycerin (Sl Tab) 0.4 Mg) 1 tab Q5M PRN SL ANGINA; Start 09/16/17 at 16:30 Tamsulosin HCl 0.4 mg 0.4 mg 21 PO Last administered on 09/17/17 12:48; Admin Dose 0.4 MG; Start 09/17/17 at 12:30 Levofloxacin/ Dextrose (Levaquin 500mg/ D5W 100 ml (Pmx)) 100 ml @ 100 mls/hr Q48H IVPB ; Start 09/18/17 at 18:00 MONALISA DOUGLASS Sep 17, 2017 16:21
[2017-09-17] MEDS ORDERED: IOHEXOL 300MG/ML 30 ML BTL ONE (17:26)
[2017-09-17] MEDS ORDERED: LIDOCAINE 2% (SDV) 5 ML INJ ONE (18:23)
[2017-09-17] MEDS ORDERED: PROPOFOL 20 ML ONE (18:23)
[2017-09-17] MEDS ORDERED: FENTAnyl 50 MCG/ML VIAL ONE (18:24)
[2017-09-17] MEDS ORDERED: MIDAZOLAM 1 MG/ML 2 ML INJ ONE (18:24)
[2017-09-17] MEDS ORDERED: METOCLOPRAMIDE 10 MG INJ ONE (18:49)
[2017-09-17] MEDS ORDERED: ONDANSETRON 4 MG INJ ONE (18:49)
[2017-09-17] MEDS ORDERED: DEXAMETHASONE 4 MG/ML 1 ML INJ ONE (18:49)
[2017-09-17] MEDS ORDERED: PHENYLephrine (100 MCG/ML) 5ML SYG ONE (18:56)
[2017-09-17] MEDS ORDERED: FENTAnyl 50 MCG/ML VIAL IV PRN (19:00)
[2017-09-17] MEDS ORDERED: ONDANSETRON 4 MG INJ IV PRN (19:00)
[2017-09-17] MEDS ORDERED: MEPERIDINE 25 MG INJ IV PRN (19:00)
[2017-09-17] MEDS ORDERED: PROCHLORPERAZINE 10 MG INJ IV PRN (19:00)
[2017-09-17] MEDS ORDERED: DIPHENHYDRAMINE 50 MG INJ IV PRN (19:00)
[2017-09-17] MEDS ORDERED: HYDROmorphONE (0.2 MG/ML) 10ML SYG IV PRN (19:00)
--- NOTE | 2017-09-17 19:11 | CONS ---
Date/Time of Note Date/Time of Note DATE: 09/17/17 TIME: 19:07 Assessment/Plan Assessment/Plan Chief Complaint/Hosp Course anuria as a result of obstruction of a solitary renal unit I reviewed the CT scan myself he also has a punctate stone within the kidney. His creatinine has gone up dramatically as would be expected. The plan is for urgent drainage with a stent. We will make no attempt to remove the stone because planning on doing this procedure late in the evening when laser is unavailable. I again discussed this with the patient with his through assistant auditor on the steen as well as a translating bar machine operator multiple spindle he understands the stone will not be removed and he needs to follow-up for further treatment All questions were answered Problems: Consultation Date/Type/Reason Admit Date/Time Sep 16, 2017 at 13:27 Date of Consultation: Sep 17, 2017 Type of Consultation: Urology Reason for Consultation anuria Hx of Present Illness Thank you for request for evaluation. Gentleman has a single kidney. He presented to the emergency room with a tiny 2 mm stone at the left distal ureterovesical junction with creatinine in the low to level. He was sent home over the weekend and then came back today and his creatinine is now over 5 and is not urinated in a long time Translation was performed through [employer] [place] and also over the specialist telephone. He is other kidney was removed because of complications related to kidney stones. At this time his pain is mild he denies fever or chills Constitutional: no complaints Eyes: no complaints, pain ENT: no complaints Respiratory: no complaints Cardiovascular: no complaints Gastrointestinal: no complaints Genitourinary: dysuria, flank pain (left flank pain ) Musculoskeletal: no complaints Skin: no complaints Neurologic: no complaints Endocrine: no complaints Lymphatic: no complaints Psychological: no complaints Immunologic: no complaints Past Medical History Medical History: high cholesterol, hypertension Past Surgical History Past Surgical Hx: no surgical history Social History Alcohol Use: none Smoking Status: Never smoker Drug Use: none Exam/Review of Systems Vital Signs Vitals Vital Signs Date Time Temp Pulse Resp B/P Pulse Ox O2 Delivery O2 Flow Rate FiO2 09/17/17 14:35 97.8 69 16 113/66 96 09/16/17 18:55 Room Air Intake and Output 09/16/17 09/16/17 09/17/17 15:00 23:00 07:00 Intake Total 100 ml 795 ml Balance 100 ml 795 ml Exam Constitutional: alert, oriented Head: normocephalic Neck: supple Gastrointestinal: soft Genitourinary - Male: nl penis, nl scrotum Skin: nl turgor Results Result Diagram: 09/17/1751809/17/17518 Results 24 hrs Laboratory Tests Test 09/17/17 05:19 White Blood Count 8.9 Red Blood Count 4.40 L Hemoglobin 12.8 L Hematocrit 38.9 L Mean Corpuscular Volume 88.4 Mean Corpuscular Hemoglobin 29.1 Mean Corpuscular Hemoglobin Concent 32.9 Red Cell Distribution Width 13.6 Platelet Count 132 L Mean Platelet Volume 13.5 H Neutrophils % 73.2 Lymphocytes % 15.1 Monocytes % 11.0 Eosinophils % 0.3 Basophils % 0.1 Nucleated Red Blood Cells % 0.0 Neutrophils # 6.5 Lymphocytes # 1.4 Monocytes # 1.0 H Eosinophils # 0.0 Basophils # 0.0 Nucleated Red Blood Cells # 0.0 Sodium Level 141 Potassium Level 4.5 Chloride Level 109 Carbon Dioxide Level 21 Anion Gap 16 Blood Urea Nitrogen 36 #H Creatinine 5.08 #H Glucose Level 91 Hemoglobin A1c 5.0 Calcium Level 8.1 L Phosphorus Level 4.8 Magnesium Level 1.8 Triglycerides Level 161 H Cholesterol Level 128 LDL Cholesterol, Calculated 70 HDL Cholesterol 26 L Cholesterol/HDL Ratio 4.9 Thyroid Stimulating Hormone (TSH) 0.858 Medications Medications Current Medications Ondansetron HCl (Zofran Inj) 4 mg Q6H PRN IV NAUSEA AND/OR VOMITING; Start at 16:30 Acetaminophen (Tylenol Tab) 650 mg Q6H PRN PO PAIN LEVEL 1-3 OR FEVER; Start 09/16/17 at 16:30 Acetaminophen/ Hydrocodone Bitart ([place] (5/325)) 1 tab Q6H PRN PO MODERATE PAIN LEVEL 4-6 Last administered on 09/16/17 23:14; Admin Dose 1 TAB; Start 09/16/17 at 16:30 Morphine Sulfate (morphine) 2 mg Q4H PRN IV SEVERE PAIN LEVEL 7-10 Last administered on 09/17/17 15:42; Admin Dose 2 MG; Start 09/16/17 at 16:30 Docusate Sodium (Colace) 100 mg Q12H PRN PO CONSTIPATION; Start 09/16/17 at 16 :30 Magnesium Hydroxide (Milk Of Mag) 30 ml DAILY PRN PO CONSTIPATION; Start 09/16 at 16:30 Sodium Biphosphate/ Sodium Phosphate (Fleet Enema) 133 ml DAILY PRN [place] CONSTIPATION; Start 09/16/17 at 16:30 Pantoprazole (Protonix Tab) 40 mg DAILY@06 PO Last administered on 09/17/17 05:35; Admin Dose 40 MG; Start 09/17/17 at 06:00 Heparin Sodium (Porcine) (Heparin (5000 Units/0.5 ml)) 5,000 unit Q12 SC Last administered on 09/17/17 08:49; Admin Dose 5,000 UNIT; Start 09/16/17 at 21: 00 Lorazepam 0.5 mg 0.5 mg Q6H PRN IV ANXIETY; Start 09/16/17 at 16:30 Sodium Chloride (NS) 1,000 ml @ 0 mls/hr Q10H IV Last administered on 12:31; Admin Dose 20 MLS/HR; Start 09/16/17 at 16:25 Hydralazine HCl (Apresoline) 10 mg Q6H PRN IV ELEVATED BLOOD PRESSURE; Start 09/16/17 at 16:30 Clonidine (Catapres) 0.1 mg Q6H PRN PO ELEVATED BLOOD PRESSURE; Start at 16:30 Nitroglycerin (Nitroglycerin (Sl Tab) 0.4 Mg) 1 tab Q5M PRN SL ANGINA; Start 09/16/17 at 16:30 Tamsulosin HCl 0.4 mg 0.4 mg 21 PO Last administered on 09/17/17 12:48; Admin Dose 0.4 MG; Start 09/17/17 at 12:30 Levofloxacin/ Dextrose (Levaquin 500mg/ D5W 100 ml (Pmx)) 100 ml @ 100 mls/hr Q48H IVPB ; Start 09/18/17 at 18:00 TUYET BENITEZ MD Sep 17, 2017 19:11
--- NOTE | 2017-09-17 19:11 | CONS ---
Date/Time of Note Date/Time of Note DATE: 09/17/17 TIME: 19:07 Assessment/Plan Assessment/Plan Chief Complaint/Hosp Course anuria as a result of obstruction of a solitary renal unit I reviewed the CT scan myself he also has a punctate stone within the kidney. His creatinine has gone up dramatically as would be expected. The plan is for urgent drainage with a stent. We will make no attempt to remove the stone because planning on doing this procedure late in the evening when laser is unavailable. I again discussed this with the patient with his through program rep on the steen as well as a translating telephone maintainer he understands the stone will not be removed and he needs to follow-up for further treatment All questions were answered Problems: Consultation Date/Type/Reason Admit Date/Time Sep 16, 2017 at 13:27 Date of Consultation: Sep 17, 2017 Type of Consultation: Urology Reason for Consultation anuria Hx of Present Illness Thank you for request for evaluation. Gentleman has a single kidney. He presented to the emergency room with a tiny 2 mm stone at the left distal ureterovesical junction with creatinine in the low to level. He was sent home over the weekend and then came back today and his creatinine is now over 5 and is not urinated in a long time Translation was performed through [employer] and also over the specialist telephone. He is other kidney was removed because of complications related to kidney stones. At this time his pain is mild he denies fever or chills Constitutional: no complaints Eyes: no complaints, pain ENT: no complaints Respiratory: no complaints Cardiovascular: no complaints Gastrointestinal: no complaints Genitourinary: dysuria, flank pain (left flank pain ) Musculoskeletal: no complaints Skin: no complaints Neurologic: no complaints Endocrine: no complaints Lymphatic: no complaints Psychological: no complaints Immunologic: no complaints Past Medical History Medical History: high cholesterol, hypertension Past Surgical History Past Surgical Hx: no surgical history Social History Alcohol Use: none Smoking Status: Never smoker Drug Use: none Exam/Review of Systems Vital Signs Vitals Vital Signs Date Time Temp Pulse Resp B/P Pulse Ox O2 Delivery O2 Flow Rate FiO2 09/17/17 14:35 97.8 69 16 113/66 96 09/16/17 18:55 Room Air Intake and Output 09/16/17 09/16/17 09/17/17 15:00 23:00 07:00 Intake Total 100 ml 795 ml Balance 100 ml 795 ml Exam Constitutional: alert, oriented Head: normocephalic Neck: supple Gastrointestinal: soft Genitourinary - Male: nl penis, nl scrotum Skin: nl turgor Results Result Diagram: 09/17/1751809/17/17518 Results 24 hrs Laboratory Tests Test 09/17/17 05:19 White Blood Count 8.9 Red Blood Count 4.40 L Hemoglobin 12.8 L Hematocrit 38.9 L Mean Corpuscular Volume 88.4 Mean Corpuscular Hemoglobin 29.1 Mean Corpuscular Hemoglobin Concent 32.9 Red Cell Distribution Width 13.6 Platelet Count 132 L Mean Platelet Volume 13.5 H Neutrophils % 73.2 Lymphocytes % 15.1 Monocytes % 11.0 Eosinophils % 0.3 Basophils % 0.1 Nucleated Red Blood Cells % 0.0 Neutrophils # 6.5 Lymphocytes # 1.4 Monocytes # 1.0 H Eosinophils # 0.0 Basophils # 0.0 Nucleated Red Blood Cells # 0.0 Sodium Level 141 Potassium Level 4.5 Chloride Level 109 Carbon Dioxide Level 21 Anion Gap 16 Blood Urea Nitrogen 36 #H Creatinine 5.08 #H Glucose Level 91 Hemoglobin A1c 5.0 Calcium Level 8.1 L Phosphorus Level 4.8 Magnesium Level 1.8 Triglycerides Level 161 H Cholesterol Level 128 LDL Cholesterol, Calculated 70 HDL Cholesterol 26 L Cholesterol/HDL Ratio 4.9 Thyroid Stimulating Hormone (TSH) 0.858 Medications Medications Current Medications Ondansetron HCl (Zofran Inj) 4 mg Q6H PRN IV NAUSEA AND/OR VOMITING; Start at 16:30 Acetaminophen (Tylenol Tab) 650 mg Q6H PRN PO PAIN LEVEL 1-3 OR FEVER; Start 09/16/17 at 16:30 Acetaminophen/ Hydrocodone Bitart ([place] (5/325)) 1 tab Q6H PRN PO MODERATE PAIN LEVEL 4-6 Last administered on 09/16/17 23:14; Admin Dose 1 TAB; Start 09/16/17 at 16:30 Morphine Sulfate (morphine) 2 mg Q4H PRN IV SEVERE PAIN LEVEL 7-10 Last administered on 09/17/17 15:42; Admin Dose 2 MG; Start 09/16/17 at 16:30 Docusate Sodium (Colace) 100 mg Q12H PRN PO CONSTIPATION; Start 09/16/17 at 16 :30 Magnesium Hydroxide (Milk Of Mag) 30 ml DAILY PRN PO CONSTIPATION; Start 09/16 at 16:30 Sodium Biphosphate/ Sodium Phosphate (Fleet Enema) 133 ml DAILY PRN [place] CONSTIPATION; Start 09/16/17 at 16:30 Pantoprazole (Protonix Tab) 40 mg DAILY@06 PO Last administered on 09/17/17 05:35; Admin Dose 40 MG; Start 09/17/17 at 06:00 Heparin Sodium (Porcine) (Heparin (5000 Units/0.5 ml)) 5,000 unit Q12 SC Last administered on 09/17/17 08:49; Admin Dose 5,000 UNIT; Start 09/16/17 at 21: 00 Lorazepam 0.5 mg 0.5 mg Q6H PRN IV ANXIETY; Start 09/16/17 at 16:30 Sodium Chloride (NS) 1,000 ml @ 0 mls/hr Q10H IV Last administered on 12:31; Admin Dose 20 MLS/HR; Start 09/16/17 at 16:25 Hydralazine HCl (Apresoline) 10 mg Q6H PRN IV ELEVATED BLOOD PRESSURE; Start 09/16/17 at 16:30 Clonidine (Catapres) 0.1 mg Q6H PRN PO ELEVATED BLOOD PRESSURE; Start at 16:30 Nitroglycerin (Nitroglycerin (Sl Tab) 0.4 Mg) 1 tab Q5M PRN SL ANGINA; Start 09/16/17 at 16:30 Tamsulosin HCl 0.4 mg 0.4 mg 21 PO Last administered on 09/17/17 12:48; Admin Dose 0.4 MG; Start 09/17/17 at 12:30 Levofloxacin/ Dextrose (Levaquin 500mg/ D5W 100 ml (Pmx)) 100 ml @ 100 mls/hr Q48H IVPB ; Start 09/18/17 at 18:00 TUYET BENITEZ MD Sep 17, 2017 19:11
--- NOTE | 2017-09-17 19:11 | CONS ---
Date/Time of Note Date/Time of Note DATE: 09/17/17 TIME: 19:07 Assessment/Plan Assessment/Plan Chief Complaint/Hosp Course anuria as a result of obstruction of a solitary renal unit I reviewed the CT scan myself he also has a punctate stone within the kidney. His creatinine has gone up dramatically as would be expected. The plan is for urgent drainage with a stent. We will make no attempt to remove the stone because planning on doing this procedure late in the evening when laser is unavailable. I again discussed this with the patient with his through medical research tech on the steen as well as a translating telephone order clerk room service he understands the stone will not be removed and he needs to follow-up for further treatment All questions were answered Problems: Consultation Date/Type/Reason Admit Date/Time Sep 16, 2017 at 13:27 Date of Consultation: Sep 17, 2017 Type of Consultation: Urology Reason for Consultation anuria Hx of Present Illness Thank you for request for evaluation. Gentleman has a single kidney. He presented to the emergency room with a tiny 2 mm stone at the left distal ureterovesical junction with creatinine in the low to level. He was sent home over the weekend and then came back today and his creatinine is now over 5 and is not urinated in a long time Translation was performed through community health advocate and also over the specialist telephone. He is other kidney was removed because of complications related to kidney stones. At this time his pain is mild he denies fever or chills Constitutional: no complaints Eyes: no complaints, pain ENT: no complaints Respiratory: no complaints Cardiovascular: no complaints Gastrointestinal: no complaints Genitourinary: dysuria, flank pain (left flank pain ) Musculoskeletal: no complaints Skin: no complaints Neurologic: no complaints Endocrine: no complaints Lymphatic: no complaints Psychological: no complaints Immunologic: no complaints Past Medical History Medical History: high cholesterol, hypertension Past Surgical History Past Surgical Hx: no surgical history Social History Alcohol Use: none Smoking Status: Never smoker Drug Use: none Exam/Review of Systems Vital Signs Vitals Vital Signs Date Time Temp Pulse Resp B/P Pulse Ox O2 Delivery O2 Flow Rate FiO2 09/17/17 14:35 97.8 69 16 113/66 96 09/16/17 18:55 Room Air Intake and Output 09/16/17 09/16/17 09/17/17 15:00 23:00 07:00 Intake Total 100 ml 795 ml Balance 100 ml 795 ml Exam Constitutional: alert, oriented Head: normocephalic Neck: supple Gastrointestinal: soft Genitourinary - Male: nl penis, nl scrotum Skin: nl turgor Results Result Diagram: 09/17/1751809/17/17518 Results 24 hrs Laboratory Tests Test 09/17/17 05:19 White Blood Count 8.9 Red Blood Count 4.40 L Hemoglobin 12.8 L Hematocrit 38.9 L Mean Corpuscular Volume 88.4 Mean Corpuscular Hemoglobin 29.1 Mean Corpuscular Hemoglobin Concent 32.9 Red Cell Distribution Width 13.6 Platelet Count 132 L Mean Platelet Volume 13.5 H Neutrophils % 73.2 Lymphocytes % 15.1 Monocytes % 11.0 Eosinophils % 0.3 Basophils % 0.1 Nucleated Red Blood Cells % 0.0 Neutrophils # 6.5 Lymphocytes # 1.4 Monocytes # 1.0 H Eosinophils # 0.0 Basophils # 0.0 Nucleated Red Blood Cells # 0.0 Sodium Level 141 Potassium Level 4.5 Chloride Level 109 Carbon Dioxide Level 21 Anion Gap 16 Blood Urea Nitrogen 36 #H Creatinine 5.08 #H Glucose Level 91 Hemoglobin A1c 5.0 Calcium Level 8.1 L Phosphorus Level 4.8 Magnesium Level 1.8 Triglycerides Level 161 H Cholesterol Level 128 LDL Cholesterol, Calculated 70 HDL Cholesterol 26 L Cholesterol/HDL Ratio 4.9 Thyroid Stimulating Hormone (TSH) 0.858 Medications Medications Current Medications Ondansetron HCl (Zofran Inj) 4 mg Q6H PRN IV NAUSEA AND/OR VOMITING; Start at 16:30 Acetaminophen (Tylenol Tab) 650 mg Q6H PRN PO PAIN LEVEL 1-3 OR FEVER; Start 09/16/17 at 16:30 Acetaminophen/ Hydrocodone Bitart ([place] (5/325)) 1 tab Q6H PRN PO MODERATE PAIN LEVEL 4-6 Last administered on 09/16/17 23:14; Admin Dose 1 TAB; Start 09/16/17 at 16:30 Morphine Sulfate (morphine) 2 mg Q4H PRN IV SEVERE PAIN LEVEL 7-10 Last administered on 09/17/17 15:42; Admin Dose 2 MG; Start 09/16/17 at 16:30 Docusate Sodium (Colace) 100 mg Q12H PRN PO CONSTIPATION; Start 09/16/17 at 16 :30 Magnesium Hydroxide (Milk Of Mag) 30 ml DAILY PRN PO CONSTIPATION; Start 09/16 at 16:30 Sodium Biphosphate/ Sodium Phosphate (Fleet Enema) 133 ml DAILY PRN [place] CONSTIPATION; Start 09/16/17 at 16:30 Pantoprazole (Protonix Tab) 40 mg DAILY@06 PO Last administered on 09/17/17 05:35; Admin Dose 40 MG; Start 09/17/17 at 06:00 Heparin Sodium (Porcine) (Heparin (5000 Units/0.5 ml)) 5,000 unit Q12 SC Last administered on 09/17/17 08:49; Admin Dose 5,000 UNIT; Start 09/16/17 at 21: 00 Lorazepam 0.5 mg 0.5 mg Q6H PRN IV ANXIETY; Start 09/16/17 at 16:30 Sodium Chloride (NS) 1,000 ml @ 0 mls/hr Q10H IV Last administered on 12:31; Admin Dose 20 MLS/HR; Start 09/16/17 at 16:25 Hydralazine HCl (Apresoline) 10 mg Q6H PRN IV ELEVATED BLOOD PRESSURE; Start 09/16/17 at 16:30 Clonidine (Catapres) 0.1 mg Q6H PRN PO ELEVATED BLOOD PRESSURE; Start at 16:30 Nitroglycerin (Nitroglycerin (Sl Tab) 0.4 Mg) 1 tab Q5M PRN SL ANGINA; Start 09/16/17 at 16:30 Tamsulosin HCl 0.4 mg 0.4 mg 21 PO Last administered on 09/17/17 12:48; Admin Dose 0.4 MG; Start 09/17/17 at 12:30 Levofloxacin/ Dextrose (Levaquin 500mg/ D5W 100 ml (Pmx)) 100 ml @ 100 mls/hr Q48H IVPB ; Start 09/18/17 at 18:00 TUYET BENITEZ MD Sep 17, 2017 19:11
--- NOTE | 2017-09-17 19:14 | OPR ---
Date/Time of Note Date/Time of Note DATE: 09/17/17 TIME: 19:11 Operative Report Procedure Date: Sep 17, 2017 Preoperative Diagnosis Left-sided distal ureteral stone solitary kidney Postoperative Diagnosis Same Operation/Procedure Performed Cystoscopy left-sided stent placement Surgeon see signature line Coding Support Specialist None Anesthesia Type: general Estimated Blood Loss: none Transfusion none Specimen Urine from the left kidney Grafts/Implants none 7 by 24 double-J stent Complications none Disposition: PACU Procedure Description Patient placed in lithotomy position prepped and draped in sterile fashion. Cystoscope is inserted no stone is seen urethra prostate bladder is normal there is edema around the left trigone left ureteric orifice. There is no right ureteric orifice. A guidewire was inserted but would not pass through the distal ureter. Multiple attempts were made. The stone was not fluoroscopically visible. I tried a J wire. I tried a sensor wire. Eventually I was able to get the wire past the stone I was then able to push the ureteral catheter past the stone into the kidney. I got a hydronephrotic drip which I sent urine for culture A 7 x 24 double-J stent was then inserted without difficulty with excellent final position. The patient tolerated the procedure well left the operating room in satisfactory condition TUYET BENITEZ MD Sep 17, 2017 19:14
[2017-09-18 02:21] VITALS: BP 110/59; RESP 18
[2017-09-18] MEDS: PANTOPRAZOLE (EC) 40 MG TAB PO SCH (05:49)
[2017-09-18 07:54] VITALS: BP 120/61; RESP 16
[2017-09-18] MEDS: HEPARIN 5,000 UNIT/0.5 ML VIAL SC SCH ×2 (09:45→20:22)
[2017-09-18 14:00] VITALS: BP 105/66; RESP 16
--- NOTE | 2017-09-18 14:34 | PN ---
Date/Time of Note Date/Time of Note DATE: 09/18/17 TIME: 14:31 Assessment/Plan VTE Prophylaxis VTE Prophylaxis Intervention: heparin Lines/Catheters IV C[facility]ter Type [facility] Peripheral IV Assessment/Plan Chief Complaint/Hosp Course ASSESSMENT AND PLAN: 51-year-old male, past medical history of prior kidney stones and right-sided nephrectomy who presents with left flank pain with the findings of hydroureteroneprhosis and left-sided kidney stones. 1. Left flank pain. Again, likely secondary to a kidney stone. Given worsening renal insufficiency yesterday status post stent placement yesterday as well -Continue antibiotics, intravenous fluids and pain control medications as well. Hopefully patient can pass the stone. -Follow-up post procedure recommendations from urology team 2. Renal insufficiency -slightly improved yesterday after stent was placed, creatinine still quite elevated however. Adequate urine output present - again likely secondary to patient's renal stone. Appreciate renal consult. -Continue aggressive intravenous fluid hydration. Monitor urine output. - Monitor creatinine levels, follow-up renal recommendations 3. History of right-sided nephrectomy. Again, this is apparently prior over 20 years ago and that was secondary to kidney stones at that time. Continue to monitor for now. 4. Prior appendectomy. No present issues. Continue to monitor for now. Problems: Subjective 24 Hr Interval Summary Free Text/Dictation Patient had stents placed by urology yesterday, having adequate urine output presently. Exam/Review of Systems Vital Signs Vitals Vital Signs Date Time Temp Pulse Resp B/P Pulse Ox O2 Delivery O2 Flow Rate FiO2 09/18/17 14:00 98.1 77 16 105/66 96 09/17/17 19:35 Room Air Intake and Output 09/17/17 09/17/17 09/18/17 15:00 23:00 07:00 Intake Total 655 ml 2200 ml 660 ml Output Total 2 ml 250 ml Balance 655 ml 2198 ml 410 ml Exam GENERAL: The patient is sitting in bed, answering questions appropriately. HEENT: Pupils equal, round, reactive to light. Extraocular muscles intact. NECK: Supple. No thyromegaly. LUNGS: Clear to auscultation bilaterally. CARDIOVASCULAR: S1, S2 heard. No rubs or gallops. ABDOMEN: Mild tenderness to palpation in the left flank area. Otherwise, normal bowel sounds. No rebound or guarding. MUSCULOSKELETAL: No lower extremity edema bilaterally. NEUROLOGIC: No focal deficits. Results Result Diagram: 09/18/17 0525 09/18/17 0524 Results 24 hrs Laboratory Tests Test 09/17/17 18:57 09/18/17 05:24 09/18/17 05:25 Urine Color YELLOW Urine Clarity SLIGHTLY CLOUDY A Urine pH 5.0 Urine Specific [place] 1.010 Urine Ketones NEGATIVE Urine Nitrite NEGATIVE Urine Bilirubin NEGATIVE Urine Urobilinogen NEGATIVE Urine Leukocyte Esterase 2+ H Urine Microscopic RBC > 182 H Urine Microscopic WBC 55 H Urine Mucus FEW A Urine Hemoglobin 3+ H Urine Glucose NEGATIVE Urine Total Protein 1+ H Sodium Level 146 H Potassium Level 4.8 Chloride Level 115 H Carbon Dioxide Level 24 Anion Gap 12 Blood Urea Nitrogen 35 H Creatinine 3.59 #H Glucose Level 123 Calcium Level 8.9 White Blood Count 6.4 # Red Blood Count 4.37 L Hemoglobin 13.1 L Hematocrit 38.4 L Mean Corpuscular Volume 87.9 Mean Corpuscular Hemoglobin 30.0 Mean Corpuscular Hemoglobin Concent 34.1 Red Cell Distribution Width 13.2 Platelet Count 136 L Mean Platelet Volume 13.3 H Neutrophils % 86.8 H Lymphocytes % 8.0 L Monocytes % 4.9 Eosinophils % 0.0 Basophils % 0.0 Nucleated Red Blood Cells % 0.0 Neutrophils # 5.6 Lymphocytes # 0.5 L Monocytes # 0.3 Eosinophils # 0.0 Basophils # 0.0 Nucleated Red Blood Cells # 0.0 Medications Medications Current Medications Ondansetron HCl (Zofran Inj) 4 mg Q6H PRN IV NAUSEA AND/OR VOMITING; Start at 16:30 Acetaminophen (Tylenol Tab) 650 mg Q6H PRN PO PAIN LEVEL 1-3 OR FEVER; Start 09/16/17 at 16:30 Acetaminophen/ Hydrocodone Bitart ([place] (5/325)) 1 tab Q6H PRN PO MODERATE PAIN LEVEL 4-6 Last administered on 09/16/17 23:14; Admin Dose 1 TAB; Start 09/16/17 at 16:30 Morphine Sulfate (morphine) 2 mg Q4H PRN IV SEVERE PAIN LEVEL 7-10 Last administered on 09/17/17 15:42; Admin Dose 2 MG; Start 09/16/17 at 16:30 Docusate Sodium (Colace) 100 mg Q12H PRN PO CONSTIPATION; Start 09/16/17 at 16 :30 Magnesium Hydroxide (Milk Of Mag) 30 ml DAILY PRN PO CONSTIPATION; Start 09/16 at 16:30 Sodium Biphosphate/ Sodium Phosphate (Fleet Enema) 133 ml DAILY PRN [place] CONSTIPATION; Start 09/16/17 at 16:30 Pantoprazole (Protonix Tab) 40 mg DAILY@06 PO Last administered on 09/18/17 05:49; Admin Dose 40 MG; Start 09/17/17 at 06:00 Heparin Sodium (Porcine) (Heparin (5000 Units/0.5 ml)) 5,000 unit Q12 SC Last administered on 09/18/17 09:45; Admin Dose 5,000 UNIT; Start 09/16/17 at 21: 00 Lorazepam 0.5 mg 0.5 mg Q6H PRN IV ANXIETY; Start 09/16/17 at 16:30 Sodium Chloride (NS) 1,000 ml @ 0 mls/hr Q10H IV Last administered on 12:31; Admin Dose 20 MLS/HR; Start 09/16/17 at 16:25 Hydralazine HCl (Apresoline) 10 mg Q6H PRN IV ELEVATED BLOOD PRESSURE; Start 09/16/17 at 16:30 Clonidine (Catapres) 0.1 mg Q6H PRN PO ELEVATED BLOOD PRESSURE; Start at 16:30 Nitroglycerin (Nitroglycerin (Sl Tab) 0.4 Mg) 1 tab Q5M PRN SL ANGINA; Start 09/16/17 at 16:30 Tamsulosin HCl 0.4 mg 0.4 mg 21 PO Last administered on 09/17/17 12:48; Admin Dose 0.4 MG; Start 09/17/17 at 12:30 Levofloxacin/ Dextrose (Levaquin 500mg/ D5W 100 ml (Pmx)) 100 ml @ 100 mls/hr Q48H IVPB ; Start 09/18/17 at 18:00 MONALISA DOUGLASS Sep 18, 2017 14:34
--- NOTE | 2017-09-18 16:24 | RADRPT ---
PROCEDURE: Intraoperative imaging of the abdomen and pelvis with fluoroscopy. CLINICAL INDICATION: Abdominal pain. Intraoperative. TECHNIQUE: 3 images of the abdomen and pelvis were obtained in the operating room with an image in tensifier. No radiologist was in attendance. 60.4 seconds of fluoroscopy time was used. COMPARISON: CT scan of the abdomen pelvis dated 09/16/2017. FINDINGS: Images demonstrate placement of a left ureteral double pigtail stent in satisfactory position. IMPRESSION: 1. Satisfactory intraoperative imaging of the abdomen and pelvis. RPTAT: QQ .Colt Childers MD, MD Date Time Electronically viewed and signed by .Colt Childers MD, on 09/18/2017 16:24 .R/
--- NOTE | 2017-09-18 16:47 | CONS ---
Date/Time of Note Date/Time of Note DATE: 09/18/17 TIME: 16:44 Assessment/Plan Assessment/Plan Chief Complaint/Hosp Course 51-year-old male,past medical history of appendectomy, prior kidney stones, right- sided nephrectomy 20 years ago due to obstructing Kidney stones as per patient who presents with left flank pain- he gets admitted for left pyelonephritis and left flank pain, has been starated on IV levaquin for Left pyelonephritis. pt has a BUN/Cr on admission which bumped to 36/5.08- pt has obstructinve left UVJ stone causing left moderate hydroureteronephrosis. Renal has been consulted for KAREN due to obstructive uropathy and worsening renal function. Problems: Additional Assessment/Plan 1. Acute kidney Injury due to obstructive uropathy, 2. H/o right nephrectomy due to obstructing kidney stone as per patient 3> left pyelonephritis 4. Intractable left flank pain Plan: Continue IV abx for Pyelonpehritis, Urine Cx neg to date, Renally dose abx continue IVF NS at 100 cc/hr S/p Cystoscopy with Left UVJ stent placement by urology Cr improving, conitnue IVF hydration, expecting Cr to improve with IVF hydration and Urology follow up will follow up Consultation Date/Type/Reason Admit Date/Time Sep 16, 2017 at 13:27 Initial Consult Date 09/17/17 Type of Consultation: NEPHROLOGY Referring Provider: MONALISA DOUGLASS 24 HR Interval Summary Free Text/Dictation BUn/Cr improving, pt making good urine Exam/Review of Systems Vital Signs Vitals Vital Signs Date Time Temp Pulse Resp B/P Pulse Ox O2 Delivery O2 Flow Rate FiO2 09/18/17 14:00 98.1 77 16 105/66 96 09/17/17 19:35 Room Air Intake and Output 09/17/17 09/17/17 09/18/17 15:00 23:00 07:00 Intake Total 655 ml 2200 ml 660 ml Output Total 2 ml 250 ml Balance 655 ml 2198 ml 410 ml Exam Constitutional: alert Respiratory: clear to auscultation, normal air movement Cardiovascular: nl pulses, regular rate and rhythm Gastrointestinal: soft, tender (left CVA tenderness ) Musculoskeletal: nl extremities to inspection, nl gait and stance Extremities: normal pulses Neurological: COMMERCIAL PEST CONTROL TECHNICIAN II-XII intact, nl mental status, nl speech, nl strength Skin: nl turgor Lymph: nl lymph nodes Results Result Diagram: 09/18/17 0509/18/17 0524 Results 24 hrs Laboratory Tests Test 09/17/17 18:57 09/18/17 05:24 09/18/17 05:25 Urine Color YELLOW Urine Clarity SLIGHTLY CLOUDY A Urine pH 5.0 Urine Specific [place] 1.010 Urine Ketones NEGATIVE Urine Nitrite NEGATIVE Urine Bilirubin NEGATIVE Urine Urobilinogen NEGATIVE Urine Leukocyte Esterase 2+ H Urine Microscopic RBC > 182 H Urine Microscopic WBC 55 H Urine Mucus FEW A Urine Hemoglobin 3+ H Urine Glucose NEGATIVE Urine Total Protein 1+ H Sodium Level 146 H Potassium Level 4.8 Chloride Level 115 H Carbon Dioxide Level 24 Anion Gap 12 Blood Urea Nitrogen 35 H Creatinine 3.59 #H Glucose Level 123 Calcium Level 8.9 White Blood Count 6.4 # Red Blood Count 4.37 L Hemoglobin 13.1 L Hematocrit 38.4 L Mean Corpuscular Volume 87.9 Mean Corpuscular Hemoglobin 30.0 Mean Corpuscular Hemoglobin Concent 34.1 Red Cell Distribution Width 13.2 Platelet Count 136 L Mean Platelet Volume 13.3 H Neutrophils % 86.8 H Lymphocytes % 8.0 L Monocytes % 4.9 Eosinophils % 0.0 Basophils % 0.0 Nucleated Red Blood Cells % 0.0 Neutrophils # 5.6 Lymphocytes # 0.5 L Monocytes # 0.3 Eosinophils # 0.0 Basophils # 0.0 Nucleated Red Blood Cells # 0.0 Medications Medications Current Medications Ondansetron HCl (Zofran Inj) 4 mg Q6H PRN IV NAUSEA AND/OR VOMITING; Start at 16:30 Acetaminophen (Tylenol Tab) 650 mg Q6H PRN PO PAIN LEVEL 1-3 OR FEVER; Start 09/16/17 at 16:30 Acetaminophen/ Hydrocodone Bitart ([place] (5/325)) 1 tab Q6H PRN PO MODERATE PAIN LEVEL 4-6 Last administered on 09/16/17 23:14; Admin Dose 1 TAB; Start 09/16/17 at 16:30 Morphine Sulfate (morphine) 2 mg Q4H PRN IV SEVERE PAIN LEVEL 7-10 Last administered on 09/17/17 15:42; Admin Dose 2 MG; Start 09/16/17 at 16:30 Docusate Sodium (Colace) 100 mg Q12H PRN PO CONSTIPATION; Start 09/16/17 at 16 :30 Magnesium Hydroxide (Milk Of Mag) 30 ml DAILY PRN PO CONSTIPATION; Start 09/16 at 16:30 Sodium Biphosphate/ Sodium Phosphate (Fleet Enema) 133 ml DAILY PRN [place] CONSTIPATION; Start 09/16/17 at 16:30 Pantoprazole (Protonix Tab) 40 mg DAILY@06 PO Last administered on 09/18/17 05:49; Admin Dose 40 MG; Start 09/17/17 at 06:00 Heparin Sodium (Porcine) (Heparin (5000 Units/0.5 ml)) 5,000 unit Q12 SC Last administered on 09/18/17 09:45; Admin Dose 5,000 UNIT; Start 09/16/17 at 21: 00 Lorazepam 0.5 mg 0.5 mg Q6H PRN IV ANXIETY; Start 09/16/17 at 16:30 Sodium Chloride (NS) 1,000 ml @ 0 mls/hr Q10H IV Last administered on 12:31; Admin Dose 20 MLS/HR; Start 09/16/17 at 16:25 Hydralazine HCl (Apresoline) 10 mg Q6H PRN IV ELEVATED BLOOD PRESSURE; Start 09/16/17 at 16:30 Clonidine (Catapres) 0.1 mg Q6H PRN PO ELEVATED BLOOD PRESSURE; Start at 16:30 Nitroglycerin (Nitroglycerin (Sl Tab) 0.4 Mg) 1 tab Q5M PRN SL ANGINA; Start 09/16/17 at 16:30 Tamsulosin HCl 0.4 mg 0.4 mg 21 PO Last administered on 09/17/17 12:48; Admin Dose 0.4 MG; Start 09/17/17 at 12:30 Levofloxacin/ Dextrose (Levaquin 500mg/ D5W 100 ml (Pmx)) 100 ml @ 100 mls/hr Q48H IVPB ; Start 09/18/17 at 18:00 PROSPER MANNING MD Sep 18, 2017 16:47
--- NOTE | 2017-09-18 17:50 | RADRPT ---
PROCEDURE: Renal US. CLINICAL INDICATION: Renal dysfunction. TECHNIQUE: Multiple sonographic images of the kidneys and urinary bladder were obtained. The imag es were reviewed on a PACS workstation. COMPARISON: No prior studies are available for comparison. FINDINGS: The right kidney is surgically absent. The left kidney measures 13.1 x 6.8 x 6.0 cm. There is no solid left renal mass or hydronephrosis. There is a nonobstructing 0.5 cm calculus in th e mid to lower left kidney. The left renal parenchyma is normal in thickness and echogenicity. There is a small cyst in the lower left kidney measuring 1.2 cm. The left perirenal region is normal with no fluid collection or mass. There is a left ureteral stent visualized in the bladder. IMPRESSION: 1. Nonobstructing 0.5 cm calculus in the mid to lower left kidney. 2. Left ureteral stent in the bladder. 3. Small left renal cyst. 4. Right kidney is surgically absent. RPTAT: QQ .Colt Childers MD, Date Time Electronically viewed and signed by .Colt Childers MD, on 09/18/2017 17:38 .R/
[2017-09-18] MEDS ORDERED: LEVOFLOXACIN 500MG/D5W (PMX) 100 ML IVPB SCH (18:00)
[2017-09-18] MEDS: TAMSULOSIN (SR) 0.4 MG CAP PO SCH (20:20)
[2017-09-18 20:35] VITALS: BP 102/69; RESP 18
[2017-09-19 02:17] VITALS: BP 114/74; RESP 18
[2017-09-19] MEDS: PANTOPRAZOLE (EC) 40 MG TAB PO SCH (05:13)
[2017-09-19 08:00] VITALS: BP 119/80; RESP 18
[2017-09-19] MEDS: HEPARIN 5,000 UNIT/0.5 ML VIAL SC SCH ×2 (09:02→21:09)
[2017-09-19 14:00] VITALS: BP 129/69; RESP 18
--- NOTE | 2017-09-19 14:27 | PN ---
Date/Time of Note Date/Time of Note DATE: 09/19/17 TIME: 14:22 Assessment/Plan VTE Prophylaxis VTE Prophylaxis Intervention: heparin Lines/Catheters IV [facility] Peripheral IV Assessment/Plan Chief Complaint/Hosp Course ASSESSMENT AND PLAN: 51-year-old male, past medical history of prior kidney stones and right-sided nephrectomy who presents with left flank pain with the findings of hydroureteroneprhosis and left-sided kidney stones. 1. Left flank pain. Again, likely secondary to a kidney stone. Status post stent placement 2 days ago as well -Continue antibiotics, intravenous fluids and pain control medications as well. Hopefully patient can pass the stone, Although, again, stent is in place. -Follow-up post procedure recommendations from urology team - Likely patient will follow up with them in the office in the next few days once discharged 2. Renal insufficiency - Slowly improving the last 2 days after stent was placed, creatinine still quite elevated however. Adequate urine output present. Appreciate renal consult. -Continue aggressive intravenous fluid hydration. - Monitor urine output. - Monitor creatinine levels, follow-up renal recommendations 3. History of right-sided nephrectomy. Again, this is apparently prior over 20 years ago and that was secondary to kidney stones at that time. Continue to monitor for now. 4. Prior appendectomy. No present issues. Continue to monitor for now. Problems: Subjective 24 Hr Interval Summary Free Text/Dictation Patient having some mild urinary hesitancy, but denies dysuria. Urine output more adequate today. No acute events overnight. Exam/Review of Systems Vital Signs Vitals Vital Signs Date Time Temp Pulse Resp B/P Pulse Ox O2 Delivery O2 Flow Rate FiO2 09/19/17 14:00 97.9 75 18 129/69 96 09/17/17 19:35 Room Air Intake and Output 09/18/17 09/18/17 09/19/17 15:00 23:00 07:00 Intake Total 1340 ml 970 ml Output Total 1000 ml 1900 ml Balance 340 ml -930 ml Exam GENERAL: The patient is sitting in bed, answering questions appropriately. HEENT: Pupils equal, round, reactive to light. Extraocular muscles intact. NECK: Supple. No thyromegaly. LUNGS: Clear to auscultation bilaterally. CARDIOVASCULAR: S1, S2 heard. No rubs or gallops. ABDOMEN: Mild tenderness to palpation in the left flank area. Otherwise, normal bowel sounds. No rebound or guarding. MUSCULOSKELETAL: No lower extremity edema bilaterally. NEUROLOGIC: No focal deficits. Results Result Diagram: 09/19/17 0503 09/19/17 0503 Results 24 hrs Laboratory Tests Test 09/19/17 05:03 White Blood Count 6.1 Red Blood Count 4.38 L Hemoglobin 13.0 L Hematocrit 38.9 L Mean Corpuscular Volume 88.8 Mean Corpuscular Hemoglobin 29.7 Mean Corpuscular Hemoglobin Concent 33.4 Red Cell Distribution Width 13.3 Platelet Count 135 L Mean Platelet Volume 13.5 H Neutrophils % 51.5 Lymphocytes % 37.6 Monocytes % 8.6 Eosinophils % 1.7 Basophils % 0.3 Nucleated Red Blood Cells % 0.0 Neutrophils # 3.1 Lymphocytes # 2.3 Monocytes # 0.5 Eosinophils # 0.1 Basophils # 0.0 Nucleated Red Blood Cells # 0.0 Sodium Level 145 H Potassium Level 4.4 Chloride Level 112 H Carbon Dioxide Level 26 Anion Gap 11 Blood Urea Nitrogen 28 H Creatinine 1.77 #H Glucose Level 90 Calcium Level 8.9 Medications Medications Current Medications Ondansetron HCl (Zofran Inj) 4 mg Q6H PRN IV NAUSEA AND/OR VOMITING; Start at 16:30 Acetaminophen (Tylenol Tab) 650 mg Q6H PRN PO PAIN LEVEL 1-3 OR FEVER; Start 09/16/17 at 16:30 Acetaminophen/ Hydrocodone Bitart ([place] (5/325)) 1 tab Q6H PRN PO MODERATE PAIN LEVEL 4-6 Last administered on 09/16/17 23:14; Admin Dose 1 TAB; Start 09/16/17 at 16:30 Morphine Sulfate (morphine) 2 mg Q4H PRN IV SEVERE PAIN LEVEL 7-10 Last administered on 09/17/17 15:42; Admin Dose 2 MG; Start 09/16/17 at 16:30 Docusate Sodium (Colace) 100 mg Q12H PRN PO CONSTIPATION; Start 09/16/17 at 16 :30 Magnesium Hydroxide (Milk Of Mag) 30 ml DAILY PRN PO CONSTIPATION; Start 09/16 at 16:30 Sodium Biphosphate/ Sodium Phosphate (Fleet Enema) 133 ml DAILY PRN [place] CONSTIPATION; Start 09/16/17 at 16:30 Pantoprazole (Protonix Tab) 40 mg DAILY@06 PO Last administered on 09/19/17 05:13; Admin Dose 40 MG; Start 09/17/17 at 06:00 Heparin Sodium (Porcine) (Heparin (5000 Units/0.5 ml)) 5,000 unit Q12 SC Last administered on 09/19/17 09:02; Admin Dose 5,000 UNIT; Start 09/16/17 at 21: 00 Lorazepam 0.5 mg 0.5 mg Q6H PRN IV ANXIETY; Start 09/16/17 at 16:30 Sodium Chloride (NS) 1,000 ml @ 0 mls/hr Q10H IV Last administered on 12:31; Admin Dose 20 MLS/HR; Start 09/16/17 at 16:25 Hydralazine HCl (Apresoline) 10 mg Q6H PRN IV ELEVATED BLOOD PRESSURE; Start 09/16/17 at 16:30 Clonidine (Catapres) 0.1 mg Q6H PRN PO ELEVATED BLOOD PRESSURE; Start at 16:30 Nitroglycerin (Nitroglycerin (Sl Tab) 0.4 Mg) 1 tab Q5M PRN SL ANGINA; Start 09/16/17 at 16:30 Tamsulosin HCl 0.4 mg 0.4 mg 21 PO Last administered on 09/18/17 20:20; Admin Dose 0.4 MG; Start 09/17/17 at 12:30 Levofloxacin/ Dextrose (Levaquin 500mg/ D5W 100 ml (Pmx)) 100 ml @ 100 mls/hr Q48H IVPB Last administered on 09/18/17 17:54; Admin Dose 100 MLS/HR; Start 09/18/17 at 18:00 MONALISA DOUGLASS Sep 19, 2017 14:27
[2017-09-19] MEDS: SOD CHLORIDE 0.9% 1,000 ML IV SCH (15:49)
--- NOTE | 2017-09-19 17:09 | CONS ---
Date/Time of Note Date/Time of Note DATE: 09/19/17 TIME: 17:07 Assessment/Plan Assessment/Plan Chief Complaint/Hosp Course 51-year-old male,past medical history of appendectomy, prior kidney stones, right- sided nephrectomy 20 years ago due to obstructing Kidney stones as per patient who presents with left flank pain- he gets admitted for left pyelonephritis and left flank pain, has been starated on IV levaquin for Left pyelonephritis. pt has a BUN/Cr on admission which bumped to 36/5.08- pt has obstructinve left UVJ stone causing left moderate hydroureteronephrosis. Renal has been consulted for KAREN due to obstructive uropathy and worsening renal function. Problems: Additional Assessment/Plan 1. Acute kidney Injury due to obstructive uropathy, 2. H/o right nephrectomy due to obstructing kidney stone as per patient 3> left pyelonephritis 4. Intractable left flank pain Plan: off IVF now, Bp stable, Cr improving S/p Cystoscopy with Left UVJ stent placement by urology Cr improving, conitnue IVF hydration, expecting Cr to improve with IVF hydration and Urology follow up will follow up Consultation Date/Type/Reason Admit Date/Time Sep 16, 2017 at 13:27 Initial Consult Date 09/17/17 Type of Consultation: NEPHROLOGY Referring Provider: MONALISA DOUGLASS 24 HR Interval Summary Free Text/Dictation Cr improving, pt still c/o left flank pain Exam/Review of Systems Vital Signs Vitals Vital Signs Date Time Temp Pulse Resp B/P Pulse Ox O2 Delivery O2 Flow Rate FiO2 09/19/17 14:00 97.9 75 18 129/69 96 09/17/17 19:35 Room Air Intake and Output 09/18/17 09/18/17 09/19/17 15:00 23:00 07:00 Intake Total 1340 ml 970 ml Output Total 1000 ml 1900 ml Balance 340 ml -930 ml Exam Constitutional: alert Respiratory: clear to auscultation, normal air movement Cardiovascular: nl pulses, regular rate and rhythm Gastrointestinal: soft, tender (left CVA tenderness ) Musculoskeletal: nl extremities to inspection, nl gait and stance Extremities: normal pulses 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 intact, nl mental status, nl speech, nl strength Skin: nl turgor Lymph: nl lymph nodes Results Result Diagram: 09/19/17 0503 09/19/17 0503 Results 24 hrs Laboratory Tests Test 09/19/17 05:03 White Blood Count 6.1 Red Blood Count 4.38 L Hemoglobin 13.0 L Hematocrit 38.9 L Mean Corpuscular Volume 88.8 Mean Corpuscular Hemoglobin 29.7 Mean Corpuscular Hemoglobin Concent 33.4 Red Cell Distribution Width 13.3 Platelet Count 135 L Mean Platelet Volume 13.5 H Neutrophils % 51.5 Lymphocytes % 37.6 Monocytes % 8.6 Eosinophils % 1.7 Basophils % 0.3 Nucleated Red Blood Cells % 0.0 Neutrophils # 3.1 Lymphocytes # 2.3 Monocytes # 0.5 Eosinophils # 0.1 Basophils # 0.0 Nucleated Red Blood Cells # 0.0 Sodium Level 145 H Potassium Level 4.4 Chloride Level 112 H Carbon Dioxide Level 26 Anion Gap 11 Blood Urea Nitrogen 28 H Creatinine 1.77 #H Glucose Level 90 Calcium Level 8.9 Medications Medications Current Medications Ondansetron HCl (Zofran Inj) 4 mg Q6H PRN IV NAUSEA AND/OR VOMITING; Start at 16:30 Acetaminophen (Tylenol Tab) 650 mg Q6H PRN PO PAIN LEVEL 1-3 OR FEVER; Start 09/16/17 at 16:30 Acetaminophen/ Hydrocodone Bitart ([place] (5/325)) 1 tab Q6H PRN PO MODERATE PAIN LEVEL 4-6 Last administered on 09/16/17 23:14; Admin Dose 1 TAB; Start 09/16/17 at 16:30 Morphine Sulfate (morphine) 2 mg Q4H PRN IV SEVERE PAIN LEVEL 7-10 Last administered on 09/17/17 15:42; Admin Dose 2 MG; Start 09/16/17 at 16:30 Docusate Sodium (Colace) 100 mg Q12H PRN PO CONSTIPATION; Start 09/16/17 at 16 :30 Magnesium Hydroxide (Milk Of Mag) 30 ml DAILY PRN PO CONSTIPATION; Start 09/16 at 16:30 Sodium Biphosphate/ Sodium Phosphate (Fleet Enema) 133 ml DAILY PRN [place] CONSTIPATION; Start 09/16/17 at 16:30 Pantoprazole (Protonix Tab) 40 mg DAILY@06 PO Last administered on 09/19/17 05:13; Admin Dose 40 MG; Start 09/17/17 at 06:00 Heparin Sodium (Porcine) (Heparin (5000 Units/0.5 ml)) 5,000 unit Q12 SC Last administered on 09/19/17 09:02; Admin Dose 5,000 UNIT; Start 09/16/17 at 21: 00 Lorazepam 0.5 mg 0.5 mg Q6H PRN IV ANXIETY; Start 09/16/17 at 16:30 Sodium Chloride (NS) 1,000 ml @ 0 mls/hr Q10H IV Last administered on 15:49; Admin Dose 20 MLS/HR; Start 09/16/17 at 16:25 Hydralazine HCl (Apresoline) 10 mg Q6H PRN IV ELEVATED BLOOD PRESSURE; Start 09/16/17 at 16:30 Clonidine (Catapres) 0.1 mg Q6H PRN PO ELEVATED BLOOD PRESSURE; Start at 16:30 Nitroglycerin (Nitroglycerin (Sl Tab) 0.4 Mg) 1 tab Q5M PRN SL ANGINA; Start 09/16/17 at 16:30 Tamsulosin HCl 0.4 mg 0.4 mg 21 PO Last administered on 09/18/17 20:20; Admin Dose 0.4 MG; Start 09/17/17 at 12:30 Levofloxacin/ Dextrose (Levaquin 500mg/ D5W 100 ml (Pmx)) 100 ml @ 100 mls/hr Q48H IVPB Last administered on 09/18/17 17:54; Admin Dose 100 MLS/HR; Start 09/18/17 at 18:00 PROSPER MANNING MD Sep 19, 2017 17:09
[2017-09-19 20:15] VITALS: BP 120/67; RESP 18
[2017-09-19] MEDS: TAMSULOSIN (SR) 0.4 MG CAP PO SCH (21:07)
[2017-09-20 02:21] VITALS: BP 118/67; RESP 18
[2017-09-20] MEDS ORDERED: CEPASTAT LOZENGE MT PRN (02:30)
[2017-09-20] MEDS: PANTOPRAZOLE (EC) 40 MG TAB PO SCH (05:32)
[2017-09-20 08:00] VITALS: BP 118/76; RESP 20
[2017-09-20] MEDS: HEPARIN 5,000 UNIT/0.5 ML VIAL SC SCH (09:00)
--- NOTE | 2017-09-20 13:30 | PDOCDIS ---
Discharge Instructions CONDITION Patient Condition: Stable HOME CARE INSTRUCTIONS: Special Diet: reg diet ACTIVITY: Activity Restrictions: Slowly Increase Activity FOLLOW UP/APPOINTMENTS Follow-up Plan Please take your medications as prescribed. Please follow-up with your regular doctor in the clinic in the next 1 week, as well as your urology doctor in the next few days as well. MONALISA DOUGLASS Sep 20, 2017 13:30
[2017-09-20] MEDS ORDERED: BENZ1LOZ4 MT (13:33)
[2017-09-20] MEDS ORDERED: LEVO750T25 PO (13:33)
[2017-09-20] MEDS ORDERED: TAMS-14 PO (13:33)
[2017-09-20 14:00] VITALS: BP 123/77; RESP 20
--- NOTE | 2017-09-20 15:11 | DS ---
DATE OF ADMISSION: 09/16/2017 DATE OF DISCHARGE: 09/20/2017 HOSPITAL COURSE: This is a 51-year-old male, originally admitted on 09/16/2017 being discharged home on 09/20/2017. The patient came in with left flank pain. He was found with renal insufficiency. He does have a history of right nephrectomy over 20 years ago secondary to kidney stones. His left flank pain on this admission was thought to be secondary to another kidney stone that was found on CT scan of abdomen pelvis on this admission, so he was admitted, seen by urology team and renal team during this hospital stay. He was given IV fluid hydration, although his renal function did initially get worse, his creatinine levels were elevating, so a renal doctor evaluated the patient and continued aggressive IV fluid hydration. And urology team came and placed a stent to help with urine function, so he had a cystoscopy with left-sided stent placement. The patient's kidney function improved afterwards. Creatinine levels trended down close to normal range. He was able to ambulate and tolerate an oral diet. He was also found to have a urinary tract infection and placed on antibiotics as well. His urine culture was negative. After getting clearance for consultants, the patient will be discharged home today in improved condition. DISCHARGE MEDICATIONS: He will be sent with Levaquin 750 mg orally daily for 7 more days. Benzocaine sore throat lozenges every 1 hours as needed. Flomax 0.4 mg daily. He will continue Tylenol #3 every 6 hours as needed. FOLLOWUP: He will need to follow urology team in the next 3-5 days as well, and primary care doctor team in the clinic in the next 1-2 weeks. FINAL DIAGNOSES: 1. Left flank pain secondary to left-sided kidney stone, status post-cystoscopy, left-sided stent placement. 2. History of prior kidney stones. With right-sided nephrectomy over 20 years ago. 3. Urinary tract infection. 4. Renal insufficiency secondary to #1, improving. 5. Prior appendectomy. TIME SPENT: The time spent on discharge for patient is 45 minutes. Dictated By: Dewey Goldsmith MD /juana/arielle /Document#: [id number]
--- NOTE | 2017-09-20 15:45 | CONS ---
Date/Time of Note Date/Time of Note DATE: 09/20/17 TIME: 15:44 Assessment/Plan Assessment/Plan Chief Complaint/Hosp Course 51-year-old male,past medical history of appendectomy, prior kidney stones, right- sided nephrectomy 20 years ago due to obstructing Kidney stones as per patient who presents with left flank pain- he gets admitted for left pyelonephritis and left flank pain, has been starated on IV levaquin for Left pyelonephritis. pt has a BUN/Cr on admission which bumped to 36/5.08- pt has obstructinve left UVJ stone causing left moderate hydroureteronephrosis. Renal has been consulted for KAREN due to obstructive uropathy and worsening renal function. Problems: Additional Assessment/Plan 1. Acute kidney Injury due to obstructive uropathy, 2. H/o right nephrectomy due to obstructing kidney stone as per patient 3> left pyelonephritis 4. Intractable left flank pain Plan: off IVF now, Bp stable, Cr improving , ok to d/c home , follow up wiht me in clinic in 1 weeks S/p Cystoscopy with Left UVJ stent placement by urology will follow up Consultation Date/Type/Reason Admit Date/Time Sep 16, 2017 at 13:27 Initial Consult Date 09/17/17 Type of Consultation: NEPHROLOGY Referring Provider: MONALISA DOUGLASS 24 HR Interval Summary Free Text/Dictation Cr improved much better, Bp stable, on IVF Exam/Review of Systems Vital Signs Vitals Vital Signs Date Time Temp Pulse Resp B/P Pulse Ox O2 Delivery O2 Flow Rate FiO2 09/20/17 14:00 98.8 90 20 123/77 96 09/17/17 19:35 Room Air Intake and Output 09/19/17 09/19/17 09/20/17 15:00 23:00 07:00 Intake Total 200 ml 1480 ml 840 ml Balance 200 ml 1480 ml 840 ml Exam Constitutional: alert Respiratory: clear to auscultation, normal air movement Cardiovascular: nl pulses, regular rate and rhythm Gastrointestinal: soft, tender (left CVA tenderness ) Musculoskeletal: nl extremities to inspection, nl gait and stance Extremities: normal pulses Neurological: 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, nl mental status, nl speech, nl strength Skin: nl turgor Lymph: nl lymph nodes Results Result Diagram: 09/20/17 0556 09/20/17 0556 Results 24 hrs Laboratory Tests Test 09/20/17 05:56 White Blood Count 5.5 Red Blood Count 4.74 Hemoglobin 13.7 L Hematocrit 41.5 L Mean Corpuscular Volume 87.6 Mean Corpuscular Hemoglobin 28.9 L Mean Corpuscular Hemoglobin Concent 33.0 Red Cell Distribution Width 13.4 Platelet Count 157 Mean Platelet Volume 13.0 H Neutrophils % 46.2 Lymphocytes % 41.2 Monocytes % 7.9 Eosinophils % 3.8 Basophils % 0.4 Nucleated Red Blood Cells % 0.0 Neutrophils # 2.6 Lymphocytes # 2.3 Monocytes # 0.4 Eosinophils # 0.2 Basophils # 0.0 Nucleated Red Blood Cells # 0.0 Sodium Level 145 H Potassium Level 3.9 Chloride Level 108 Carbon Dioxide Level 28 Anion Gap 13 Blood Urea Nitrogen 20 Creatinine 1.36 H Glucose Level 91 Calcium Level 9.1 Medications Medications Current Medications Ondansetron HCl (Zofran Inj) 4 mg Q6H PRN IV NAUSEA AND/OR VOMITING; Start at 16:30 Acetaminophen (Tylenol Tab) 650 mg Q6H PRN PO PAIN LEVEL 1-3 OR FEVER; Start 09/16/17 at 16:30 Acetaminophen/ Hydrocodone Bitart ([place] (5/325)) 1 tab Q6H PRN PO MODERATE PAIN LEVEL 4-6 Last administered on 09/16/17 23:14; Admin Dose 1 TAB; Start 09/16/17 at 16:30 Morphine Sulfate (morphine) 2 mg Q4H PRN IV SEVERE PAIN LEVEL 7-10 Last administered on 09/17/17 15:42; Admin Dose 2 MG; Start 09/16/17 at 16:30 Docusate Sodium (Colace) 100 mg Q12H PRN PO CONSTIPATION; Start 09/16/17 at 16 :30 Magnesium Hydroxide (Milk Of Mag) 30 ml DAILY PRN PO CONSTIPATION; Start 09/16 at 16:30 Sodium Biphosphate/ Sodium Phosphate (Fleet Enema) 133 ml DAILY PRN [place] CONSTIPATION; Start 09/16/17 at 16:30 Pantoprazole (Protonix Tab) 40 mg DAILY@06 PO Last administered on 09/20/17 05:32; Admin Dose 40 MG; Start 09/17/17 at 06:00 Heparin Sodium (Porcine) (Heparin (5000 Units/0.5 ml)) 5,000 unit Q12 SC Last administered on 09/19/17 21:09; Admin Dose 5,000 UNIT; Start 09/16/17 at 21: 00 Lorazepam 0.5 mg 0.5 mg Q6H PRN IV ANXIETY; Start 09/16/17 at 16:30 Sodium Chloride (NS) 1,000 ml @ 0 mls/hr Q10H IV Last administered on 15:49; Admin Dose 20 MLS/HR; Start 09/16/17 at 16:25 Hydralazine HCl (Apresoline) 10 mg Q6H PRN IV ELEVATED BLOOD PRESSURE; Start 09/16/17 at 16:30 Clonidine (Catapres) 0.1 mg Q6H PRN PO ELEVATED BLOOD PRESSURE; Start at 16:30 Nitroglycerin (Nitroglycerin (Sl Tab) 0.4 Mg) 1 tab Q5M PRN SL ANGINA; Start 09/16/17 at 16:30 Tamsulosin HCl 0.4 mg 0.4 mg 21 PO Last administered on 09/19/17 21:07; Admin Dose 0.4 MG; Start 09/17/17 at 12:30 Levofloxacin/ Dextrose (Levaquin 500mg/ D5W 100 ml (Pmx)) 100 ml @ 100 mls/hr Q48H IVPB Last administered on 09/18/17 17:54; Admin Dose 100 MLS/HR; Start 09/18/17 at 18:00 Phenol (Cepastat Lozenge) 1 lozenge Q1H PRN [place] sore throat; Start 09/20/17 at 02:30 PROSPER MANNING MD Sep 20, 2017 15:45
== END 2017-09-20 14:53 | disposition home or self-care (01) | DRG 694 ==
LOC: FTE 09:27 → PP2 13:27
PROVIDERS: ADMIT Hospitalist; ATTEND Hospitalist
PROC: 0T778DZ Dilation of Left Ureter with Intraluminal Device, Via Natural or Artificial Opening Endoscopic (ICD-10-PCS; principal; 2017-09-17 17:00)
DX: N13.2 Hydronephrosis with renal and ureteral calculous obstruction (principal); N17.9 Acute kidney failure, unspecified; N13.6 Pyonephrosis; R16.0 Hepatomegaly, not elsewhere classified; Z87.442 Personal history of urinary calculi; Z90.5 Acquired absence of kidney
CPT/HCPCS: 36415; 74176; 74430; 76775; 80048; 80053; 80061; 81001; 83036; 83690; 83735; 84100; 84439; 84443; 85025; 85610; 85730; 87086; 96374; 96375; C2617; J1100; J1644; J1956; J2250; J2270; J2370; J2405; J2765; J3010; J7030; Q9967

== ENCOUNTER → 2018-10-22 | Emergency (ER) | END | disposition home or self-care (01) ==

== ENCOUNTER 2019-05-29 23:02 | Emergency (ER) | payer OTHER ==
[~2019-05-29] VITALS: Ht 170.2 cm; Wt 97.0 kg
[~2019-05-29 23:02] MED LIST changes: -ACET1TAB40 PO; -CIPR500T4 PO; +FAMO-96 PO; +PRED20TA PO; +TAMS0.4C2 PO
[2019-05-29 23:06] VITALS: Ht 170.2 cm; Wt 97.0 kg
[2019-05-30] MEDS ORDERED: IBUP-1542 PO (03:14)
[2019-05-30 03:24] VITALS: BP 119/76; PULSE 71; RESP 20
--- NOTE | 2019-05-30 03:26 | ERD ---
ER Documentation Chief Complaint Chief Complaint LEFT CALF SWELLING AFTER PLAYING SOCCER. CMS INTACT. HPI This is a 53-year-old Lao-speaking male presents to the ED complaining of sudden onset right calf welling after playing soccer earlier today. Patient states he is unable to ambulate without any pain, and pain is worse when plantar flexing his foot. He states pain is 7/10 and occurred while patient was standing. There is no fall or direct trauma. He states it felt like something sharp poked him. He states it felt like something popped and was initially sh nasim. Patient states he is unable to ablate without any pain. He denies any numbness or tingling to his lower extremities. Denies any other injuries. ROS All systems reviewed and are negative except as per history of present illness. Medications Home Meds Active Scripts Ibuprofen* (Motrin*) 600 Mg Tab, 600 MG PO Q6H PRN for PAIN AND OR ELEVATED TEMP, #30 TAB Prov:JOSH MARTINEZ PA-C 05/30/19 Famotidine* (Pepcid*) 20 Mg Tablet, 20 MG PO BID, #14 TAB Prov:BUZZ REYES PA-C 12/18/18 Prednisone* (Prednisone*) 20 Mg Tab, 40 MG PO DAILY for 4 Days, TAB Prov:BUZZ REYES PA-C 12/18/18 Reported Medications Tamsulosin Hcl* (Tamsulosin Hcl*) 0.4 Mg Cap.er.24h, 0.4 MG PO HS, CAP 10/22/18 Allergies Allergies: Coded Allergies: No Known Drug Allergy (Verified Allergy, Unknown, 10/22/18) PMhx/Soc History of Surgery: Yes (Right nephrectomy 27yrs ago, APPY) Anesthesia Reaction: No Hx Neurological Disorder: No Hx Respiratory Disorders: No Hx Cardiac Disorders: No Hx Psychiatric Problems: No Hx Miscellaneous Medical Probl: Yes (KIDNEY STONES) Hx Alcohol Use: Yes (OCCASIONAL) Hx Substance Use: No Hx Tobacco Use: No Smoking Status: Never smoker Physical Exam Vitals Vital Signs Date Temp Pulse Resp B/P (MAP) Pulse Ox O2 O2 Flow FiO2 Time Delivery Rate 05/30/19 98.1 71 20 119/76 99 Room Air 03:24 (90) 05/29/19 98.4 82 16 152/84 97 23:06 (106) Physical Exam Const: No acute distress Head: Atraumatic Eyes: Normal Conjunctiva ENT: Normal External Ears, Nose and Mouth. Neck: Full range of motion. No meningismus. Abd: Soft, non tender, non distended. Normal bowel sounds Skin: No petechiae or rashes Ext: + Right calf swelling, greater than left. Mild tenderness to palpation of the right calf. + Patient has pain with dorsiflexion of the right foot. Distal pulses intact. No bruising or ecchymosis, distal pulses intact Neur: Awake and alert Psych: Normal Mood and Affect Procedures/MDM LABS & DIAGNOSTIC IMAGING: PROCEDURE: US right lower extremity Venous. CLINICAL INDICATION: Right calf swelling and pain TECHNIQUE: Multiple sonographic images of the right lower extremity deep venous system was obtained utilizing grayscale, color-flow, compressive sonography and doppler imaging with augmentation. COMPARISON: None. FINDINGS: There is normal compressibility and flow within the right common femoral, deep femoral, superficial femoral, posterior tibial, peroneal and popliteal veins. IMPRESSION: No sonographic evidence for deep venous of the right lower extremity. ED COURSE: The patient was placed in Ceasar wrap, offered crutches but he has crutches at home. The patient remained stable throughout ED course. MEDICAL DECISION MAKIN-year-old male presents with sudden onset right calf pain and swelling after playing soccer today. Venous duplex is negative for DVT. He is neurologically intact on physical exam. No evidence of compartment syndrome, neurovascular injury, open joint or open fracture. Differentials for this patient includes possible activities tendinopathy versus rupture. Will treat with anti- inflammatories, Ceasar wrap and crutches. Recommended PCP follow-up in 1 week. Strict return precautions were discussed. PRESCRIPTIONS: Ibuprofen SPECIALIST FOLLOW UP RECOMMENDED: None Patient has been advised to follow up with primary care in 1-2 days. Departure Diagnosis: Primary Impression: Tendinopathy Condition: Stable Patient Instructions: What Is Tendinitis of the Foot?, Achilles Tendon Rupture Additional Instructions: Paciente aconseja volver a Departamento de urgencias inmediatamente para sntomas nuevos o que empeoran . Paciente aconseja posteriores con el PCP en 1-2 pineda. Si el paciente no tiene ninguna de atencin primaria pueden seguir con [facility] [id number] [place] [address] o LAC + [address] [address] JOSH MARTINEZ PA-C May 30, 2019 03:26
== END 2019-05-30 03:27 | disposition home or self-care (01) ==
LOC: FTE 23:02
DX: M77.9 Enthesopathy, unspecified (principal)
CPT/HCPCS: 93971

== ENCOUNTER 2019-06-03 23:15 | Emergency (ER) | payer OTHER ==
[~2019-06-03] VITALS: Ht 167.6 cm; Wt 99.3 kg
[~2019-06-03 23:15] MED LIST changes: +IBUP-1542 PO
[2019-06-03 23:43] VITALS: Ht 167.6 cm; Wt 99.3 kg
[2019-06-04] MEDS ORDERED: KETOROLAC 30 MG INJ IM STA (02:15)
[2019-06-04] MEDS ORDERED: CEFTRIAXONE 1 GM INJ IM ONE (02:30)
[2019-06-04] MEDS ORDERED: NAPR-985 PO (04:29)
[2019-06-04 04:52] VITALS: BP 113/77; PULSE 63; RESP 20
--- NOTE | 2019-06-06 18:56 | ERD ---
ER Documentation Chief Complaint Chief Complaint bruise on inner lat area of R foot after drving x 2 hrs today,denies injury HPI Patient is a 53-year-old male presenting to the emergency department complaining of intermittent right leg pain for the past 4 days. He states he is having difficulty ambulating secondary to pain. He reports 8/10 pain which is worse with walking. He was seen here recently for similar complaints and had an ultrasound of the right lower extremity which showed no evidence of DVT. He was diagnosed with tendinopathy at the time. He returns today because his pain is worsened. He has tried no medication for relief of symptoms prior to his visit today. No fevers, chills, or other symptoms reported at this time. ROS All systems reviewed and are negative except as per history of present illness. Medications Home Meds Active Scripts Naproxen* (Naprosyn*) 500 Mg Tablet, 500 MG PO BID PRN for PAIN AND/OR INFLAMMATION, #30 TAB Prov:MIAH COLLAZO PA-C 06/04/19 Ibuprofen* (Motrin*) 600 Mg Tab, 600 MG PO Q6H PRN for PAIN AND OR ELEVATED TEMP, #30 TAB Prov:JOSH MARTINEZ PA-C 05/30/19 Famotidine* (Pepcid*) 20 Mg Tablet, 20 MG PO BID, #14 TAB Prov:BUZZ REYES PA-C 12/18/18 Prednisone* (Prednisone*) 20 Mg Tab, 40 MG PO DAILY for 4 Days, TAB Prov:BUZZ REYES PA-C 12/18/18 Reported Medications Tamsulosin Hcl* (Tamsulosin Hcl*) 0.4 Mg Cap.er.24h, 0.4 MG PO HS, CAP 10/22/18 Allergies Allergies: Coded Allergies: No Known Drug Allergy (Verified Allergy, Unknown, 10/22/18) PMhx/Soc History of Surgery: Yes (Right nephrectomy 27yrs ago, [facility]) Anesthesia Reaction: No Hx Neurological Disorder: No Hx Respiratory Disorders: No Hx Cardiac Disorders: No Hx Psychiatric Problems: No Hx Miscellaneous Medical Probl: Yes (KIDNEY STONES) Hx Alcohol Use: Yes (OCCASIONAL) Hx Substance Use: No Hx Tobacco Use: No Physical Exam Vitals Vital Signs Date Temp Pulse Resp B/P (MAP) Pulse Ox O2 O2 Flow FiO2 Time Delivery Rate 06/04/19 98.5 63 20 113/77 96 Room Air 04:52 (89) 06/03/19 97.9 78 18 131/83 98 23:43 (99) Physical Exam Const: No acute distress Head: Atraumatic Eyes: Normal Conjunctiva ENT: Normal External Ears, Nose and Mouth. Neck: Full range of motion. No meningismus. Resp: Clear to auscultation bilaterally Cardio: Regular rate and rhythm, no murmurs Abd: Soft, non tender, non distended. Normal bowel sounds Skin: No petechiae or rashes Back: No midline or flank tenderness Ext: There is induration and tenderness palpation of the right calf. Patient has difficulty ambulating secondary to pain. Range of motion of the right ankle and right knee is intact. No obvious joint effusions noted. Patient is neurovascularly intact to the right lower extremity. Neur: Awake and alert Psych: Normal Mood and Affect Result Diagram: 06/04/19 0242 06/04/19 0242 Results 24 hrs Laboratory Tests Test 06/04/19 02:42 White Blood Count 6.3 10^3/ul Red Blood Count 5.07 10^6/ul Hemoglobin 14.9 g/dl Hematocrit 43.8 % Mean Corpuscular Volume 86.4 fl Mean Corpuscular Hemoglobin 29.4 pg Mean Corpuscular Hemoglobin Concent 34.0 g/dl Red Cell Distribution Width 14.0 % Platelet Count 169 10^3/UL Mean Platelet Volume 12.6 fl Immature Granulocytes % 0.300 % Neutrophils % 50.7 % Lymphocytes % 37.3 % Monocytes % 7.9 % Eosinophils % 3.3 % Basophils % 0.5 % Nucleated Red Blood Cells % 0.0 /100WBC Immature Granulocytes # 0.020 10^3/ul Neutrophils # 3.2 10^3/ul Lymphocytes # 2.4 10^3/ul Monocytes # 0.5 10^3/ul Eosinophils # 0.2 10^3/ul Basophils # 0.0 10^3/ul Nucleated Red Blood Cells # 0.0 10^3/ul Erythrocyte Sedimentation Rate 9 mm/Hr Sodium Level 144 mmol/L Potassium Level 4.1 mmol/L Chloride Level 106 mmol/L Carbon Dioxide Level 29 mmol/L Anion Gap 9 Blood Urea Nitrogen 18 mg/dl Creatinine 1.05 mg/dl Est Glomerular Filtrat Rate mL/min > 60 mL/min Glucose Level 113 mg/dl Calcium Level 9.2 mg/dl Total Bilirubin 0.6 mg/dl Direct Bilirubin 0.00 mg/dl Indirect Bilirubin 0.6 mg/dl Aspartate Amino Transf (AST/SGOT) 26 IU/L Alanine Aminotransferase (ALT/SGPT) 33 IU/L Alkaline Phosphatase 85 IU/L Total Protein 7.6 g/dl Albumin 4.1 g/dl Globulin 3.50 g/dl Albumin/Globulin Ratio 1.17 Current Medications Medications Dose Sig/Aidan Start Time Status Last (Trade) Ordered Route PRN Stop Time Admin Dose Reason Admin Ceftriaxone 1 gm ONCE ONCE 06/04/19 DC Sodium IM 02:30 (Rocephin) 06/04/19 02:30 Ketorolac 30 mg ONCE STAT 06/04/19 DC 06/04/19 Tromethamine IM 02:15 02:55 (Toradol) 06/04/19 02:17 Procedures/MDM This patient is a 53-year-old male presenting to the emergency department complaining of right calf pain for the past 4 days. Patient was seen here approximately 2 days ago and was diagnosed with tendinopathy after negative ultrasound of the right lower extremity. Further work-up was obtained today due to patient's ongoing pain which is worsened. CBC and CMP were within normal limits. No evidence of significant leukocytosis or anemia. ESR was 9. Low suspicion for DVT, fracture, compartment syndrome, cellulitis, rhabdomyolysis, or other emergent pathology. I discussed this case with attending ED physician, Dr. Miah Dan who is in agreement with plan for discharge and close follow-up with primary care physician and orthopedic physician as an outpatient if indicated. Patient was advised to return here immediately for any new or worsening or concerning symptoms. Patient was in agreement with the diagnosis, plan, need for follow-up, return precautions. He did improve in the department with Toradol. Patient's blood pressure was elevated (>120/80) but appears stable without [place] dence of hypertension emergency or urgency. The patient is to follow-up and pursue outpatient monitoring and therapy with their primary care physician within 1 week and return immediately if they have any new, worsening, or concerning symptoms. Departure Diagnosis: Primary Impression: Right calf pain Condition: Fair Patient Instructions: Bent-Knee Calf Stretch Additional Instructions: Llame al doctor CAESAR y rohit evelyn TREVOR PARA DENTRO DE 1-2 GARCIA.Dgale a la secretaria que nosotros le instruimos hacer esta trevor.Avise o llame si trotter condicin se empeora antes de la trevor. Regresa aqui si peor o no mejor. MIAH COLLAZO PA-C Jun 06, 2019 18:56
== END 2019-06-04 04:54 | disposition home or self-care (01) ==
LOC: FTE 23:15
DX: M79.661 Pain in right lower leg (principal)
CPT/HCPCS: 36415; 73590; 73610; 80053; 85025; 85651; 96372; J1885; Z7502